=== PATIENT | female | born 1930 | race Caucasian/White ===

== ENCOUNTER → 2017-04-10 | Outpatient (CLI) | payer OTHER ==
[2015-10-25 11:06] VITALS: BP 156/53
--- NOTE | 2017-04-10 16:53 | RAD ---
HISTORY: back pain Study: Lumbar spine series Comparison: None Findings: There is [id number] disc space narrowing throughout with moderate scoliotic curvature, convex t o the right, and centered along the mid lumbar region. There is a moderate wedge compression fracture of T12. No displaced or retropulsed fragment is seen. There are moderate sclerotic changes of the fa cets inferiorly with no pars defect seen. The bones are severely osteopenic.. IMPRESSION: Moderately severe compression fracture of T12, the age of which is indeterminate. Recommend correlati ng with an MRI or bone scan, if indicated clinically. Moderate multilevel degenerative disc disease. 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 Diffuse osteopenia. Reported By:
--- NOTE | 2017-04-11 16:07 | RAD ---
HISTORY: Upper and lower back pain Study: 3 views of the thoracic spine. Comparison: None Findings: Grossly normal alignment of the thoracic spine. Multilevel degenerative disc disease. Compression de formity of T12. IMPRESSION: 1. Compression deformity of T12. Correlate clinically for evidence of chronicity. This does not appe ar to be acute by this x-ray alone. 2. Severe multilevel degenerative disc disease of the thoracic spine. Reported By:
== END | disposition home or self-care (01) ==
LOC: RAD 14:07
PROVIDERS: ATTEND Nurse Practitioner Family
DX: M54.17 Radiculopathy, lumbosacral region (principal); R26.2 Difficulty in walking, not elsewhere classified; M54.6 Pain in thoracic spine; M85.88 Other specified disorders of bone density and structure, other site; M51.34 Other intervertebral disc degeneration, thoracic region
CPT/HCPCS: 72072; 72100

== ENCOUNTER 2017-08-20 15:52 | Inpatient (IN) | payer OTHER ==
[2017-08-20] MEDS ORDERED: NS 1000 ML 1,000 ML ONE ×2 (16:02→16:57)
[2017-08-20] MEDS ORDERED: NS 1000 ML 1,000 ML IV ONE ×2 (16:08→18:46)
[2017-08-20] MEDS ORDERED: CARDIZEM INJ 50 MG VIAL IVP ONE (16:21)
[2017-08-20] MEDS ORDERED: CARDIZEM INJ 50 MG VIAL ONE (16:24)
[2017-08-20 16:39] LABS: BASOPHILS # (AUTO) 0.1 X10^3/uL (0.0-0.1); BASOPHILS % (AUTO) 0.6 % (0.2-1.0); EOSINOPHILS # (AUTO) 0.1 x10^3/uL (0.0-0.2); EOSINOPHILS % (AUTO) 0.9 % (0.9-2.9); HEMOGLOBIN 12.5 g/dL (12.0-16.0); LYMPHOCYTES # (AUTO) 1.3 X10^3/uL (1.3-2.9); LYMPHOCYTES % (AUTO) 15.6 % (21.0-51.0); MEAN CORPUSCULAR HEMOGLOBIN 31.5 pg (27.0-34.0); MEAN CORPUSCULAR HGB CONC 33.9 g/dL (33.0-35.0); MEAN CORPUSCULAR VOLUME 93.1 fL (80.0-100.0); MEAN PLATELET VOLUME 10.2 fL (7.4-11.0); MONOCYTES # (AUTO) 0.3 x10^3/uL (0.3-0.8); MONOCYTES % (AUTO) 3.5 % (0.0-13.0); NEUTROPHILS # (AUTO) 6.7 x10^3/uL (2.2-4.8); NEUTROPHILS % (AUTO) 79.4 % (42.0-75.0); PLATELET COUNT 170 X10^3/uL (150.0-450.0); RED BLOOD COUNT 3.98 X10^6/uL (3.5-5.4); RED CELL DISTRIBUTION WIDTH 13.6 % (11.6-16.5); WHITE BLOOD COUNT 8.4 X10^3/uL (3.6-10.0)
[2017-08-20 16:51] LABS: BLOOD UREA NITROGEN 28 mg/dL (7-18); CALCIUM 8.6 mg/dL (8.5-10.1); CARBON DIOXIDE 24.7 mmol/L (21-32); CHLORIDE 104 mmol/L (98-107); COR NA(FOR HYPERGLY) 139 mmol/L (136-145); SODIUM 139 mmol/L (136-145); TROPONIN I < 0.02 ng/mL (0-1.5); eGFR BLACK RACES 46 (>60); eGFR NON BLACK RACES 38 (>60)
[2017-08-20] MEDS ORDERED: NS 100 ML IV 100 ML IV ONE (16:52)
[2017-08-20] MEDS ORDERED: CARDIZEM INJ 125 MG VIAL ONE (16:52)
[2017-08-20 16:55] LABS: ALANINE AMINOTRANSFERASE 28 Units/L (12-78); ALBUMIN 3.3 g/dL (3.4-5.0); ALKALINE PHOSPHATASE 63 Units/L (46-116); ASPARTATE AMINO TRANSFERASE 33 Units/L (15-37); CKMB % 1.7 % (<4); COR CA(FOR HYPOALB) 9.2 mg/dL (8.5-10.1); CREATINE KINASE 102 Units/L (26-192); CREATINE KINASE MB 1.7 ng/mL (0-4.0); TOTAL PROTEIN 6.7 g/dL (6.4-8.2)
--- NOTE | 2017-08-20 17:37 | DR.DIZZY ---
HPI - Time seen Time seen: 16:10 - PCP Primary Care Physician: cherise perry - HPI Comment HPI Comment: HISTORY ATRIAL FIBRILLATION. - Complaint Chief Complaint Doctor Comments: PATIENT HAVE N/V/D SINCE THIS AM. NOW DIZZY, WEAK WITH RAPID HEART RATE. Chief Complaint:: patient daughter stated that she woke up this morning and nausea and vomiting and having some diarrhea - Nurses Notes Reviewed Nurses Notes Review: Yes - Source History Provided: Patient - Mode of Arrival Mode of Arrival: Ambulatory - Timing Onset of Chief Complaint: 08/20/17 Came on: Suddenly Onset of Symptoms Start Date: 08/20/17 - Duration Duration: Constant Duration: Hours - Location of Weakness Weakness Location: Generalized - Context Onset: At rest Does pt take pot. toxic medication?: No Stroke Symptoms: Dizziness - Severity Severity: Abnormal activity level - Modifying factors Worsens: Nothing - Associated signs and symptoms Associated Signs and Symptoms: Near Syncope, Weak, Chest Pain, Palpitations, Nausea, Vomiting PMH - PMH Past Medical History: Yes Past Medical History: Hypertension, Hypothyroidism Past Surgical History: Yes Surgical History: Hysterectomy - Family History History of Family Medical Conditions: Yes Family Medical History: Cancer - Social History Does patient currently use any type of tobacco product: No Have you used tobacco products in the last 12 months: No Type of Tobacco Use: None Does any household member use tobacco: No Alcohol Use: None Do you use any recreational Drugs:: No Lives With: Family Lives Where: Assisted Care - infectious screening In the last 2 months have you had wt loss of >10#?: NO Have you had fever, night sweats or hemotysis?: No Have you traveled outside the country in the last 6 months?: No Isolation: Standard ROS - Review of Systems Constitutional: Weakness, Fatigue. negative: Chills, Fever Eyes: negative: Eye Pain, Discharge ENTM: negative: Ear Pain, Nose Discharge, Nose Congestion, Throat Pain Respiratoy: Short of Breath. negative: Productive Cough, Non-Productive Cough, Wheezing, Hemoptysis Cardiovascular: Chest Pain, Palpitations. negative: Syncope (NEAR SYNCOPE) Genitourinary: negative: Dysuria, Hematuria Neurological: Weakness, Dizziness. negative: Headache Musculoskeletal: Muscle Pain Integumentary: Dryness Hematologic/Lymphatic: No Symptoms Reported Endocrine: No Symptoms Reported All Other Systems: Reviewed and Negative PE - Vital Signs Vitals: Temperature 98.7 F Pulse Rate 149 Respiratory Rate 16 Blood Pressure [Right Arm] 190/90 Blood Pressure [Left Arm] 156/53 Blood Pressure 95/64 O2 Sat by Pulse Oximetry 100 - General Limitations: No Limitations General Appearance: Alert - Head Head Exam: Normal Inspection - Eyes Eye exam: Normal Appearance Pupils: Regular, Round: Bilateral, Reactive: Bilateral Sclera/Conjunctival: Normal Inspection: Bilateral - ENT ENT Exam: Normal Oropharynx, Normal External Ear Exam, TM's Normal Bilaterally - Neck Neck Exam: Trachea Midline. negative: Tenderness, Meningismus, Lymphadenopathy - Chest Chest Inspection: Symmetric Chest Wall Rise - Respiratory Respiratory Exam: Normal Lung Sounds Bilat Respiratory Exam: Bilateral Rhonchi, Lower Rhonchi - Cardiovascular Cardiovascular Exam: Tachycardia, Irregular Rhythm - Abdominal Exam Abdominal Exam: Normal Bowel Sounds, Soft. negative: Tenderness - Rectal Rectal Exam: Deferred - Extremeties Extremities Exam: Normal Inspection - Back Back Exam: Normal Inspection - Neurologic Neurological Exam: Alert, Oriented X3 Speech: Fluid Speech - Psychiatric Psychiatric Exam: Normal Affect, Normal Mood - Skin Skin Exam: Normal Color MDM - Additional Information Additional Information Obtained From: Family - Differential Diagnosis Differential Diagnosis: Dehydration, Electrolyte disorder (GASTROENTERITIS, A FIB WITH RVR, HYPOTENSION) Course - Treatment Treatment: SEE ORDERS. - Consultation Consultation Comments: DISCUSS PATIENT WITH DR. REYES. HE WILL ADMIT PATIENT. - Education/Counseling Education/Counseling: Patient, Family, Education Educated On: Treatment, Diagnosis ROR - Labs Reviewed Laboratory Results Reviewed?: Yes Result Diagrams: 08/20/17 16:06 08/20/17 16:06 Laboratory: WBC 8.4 X10^3/uL (3.6-10.0) 08/20/17 16:06 RBC 3.98 X10^6/uL (3.5-5.4) 08/20/17 16:06 Hgb 12.5 g/dL (12.0-16.0) 08/20/17 16:06 Hct 37.0 % (36.0-47.0) 08/20/17 16:06 MCV 93.1 fL (80.0-100.0) 08/20/17 16:06 MCH 31.5 pg (27.0-34.0) 08/20/17 16:06 MCHC 33.9 g/dL (33.0-35.0) 08/20/17 16:06 RDW 13.6 % (11.6-16.5) 08/20/17 16:06 Plt Count 170 X10^3/uL (150.0-450.0) 08/20/17 16:06 MPV 10.2 fL (7.4-11.0) 08/20/17 16:06 Neut % 79.4 % (42.0-75.0) H 08/20/17 16:06 Lymph % 15.6 % (21.0-51.0) L 08/20/17 16:06 [place] % 3.5 % (0.0-13.0) 08/20/17 16:06 Eos % 0.9 % (0.9-2.9) 08/20/17 16:06 Baso % 0.6 % (0.2-1.0) 08/20/17 16:06 Neut # 6.7 x10^3/uL (2.2-4.8) H 08/20/17 16:06 Lymph # 1.3 X10^3/uL (1.3-2.9) 08/20/17 16:06 [place] # 0.3 x10^3/uL (0.3-0.8) 08/20/17 16:06 Eos # 0.1 x10^3/uL (0.0-0.2) 08/20/17 16:06 Baso # 0.1 X10^3/uL (0.0-0.1) 08/20/17 16:06 Absolute Nucleated RBC 0.0 /100WBC 08/20/17 16:06 INR Target Range - 08/20/17 16:06 INR 1.05 (0.8-1.3) 08/20/17 16:06 PTT 25.7 SECONDS (22.9-36.5) 08/20/17 16:06 PTT Comment - 08/20/17 16:06 Sodium 139 mmol/L (136-145) 08/20/17 16:06 Corrected Sodium 139 mmol/L (136-145) 08/20/17 16:06 Potassium 4.4 mmol/L (3.5-5.1) 08/20/17 16:06 Chloride 104 mmol/L (98-107) 08/20/17 16:06 Carbon Dioxide 24.7 mmol/L (21-32) 08/20/17 16:06 BUN 28 mg/dL (7-18) H 08/20/17 16:06 Creatinine 1.40 mg/dL (0.55-1.02) H 08/20/17 16:06 Est GFR (MDRD) Af Amer 46 (>60) L 08/20/17 16:06 Est GFR (MDRD) Non-Af 38 (>60) L 08/20/17 16:06 Glucose 112 mg/dL (65-99) H 08/20/17 16:06 Calcium 8.6 mg/dL (8.5-10.1) 08/20/17 16:06 Corrected Calcium 9.2 mg/dL (8.5-10.1) 08/20/17 16:06 Total Bilirubin 0.40 mg/dL (0.2-1.0) 08/20/17 16:06 AST 33 Units/L (15-37) 08/20/17 16:06 ALT 28 Units/L (12-78) 08/20/17 16:06 Alkaline Phosphatase 63 Units/L (46-116) 08/20/17 16:06 Creatine Kinase 102 Units/L (26-192) 08/20/17 16:06 CK-MB (CK-2) 1.7 ng/mL (0-4.0) 08/20/17 16:06 CK/CKMB % Calc 1.7 % (<4) 08/20/17 16:06 Troponin I < 0.02 ng/mL (0-1.5) 08/20/17 16:06 Total Protein 6.7 g/dL (6.4-8.2) 08/20/17 16:06 Albumin 3.3 g/dL (3.4-5.0) L 08/20/17 16:06 Globulin 3.4 g/dL (2.5-4.5) 08/20/17 16:06 Albumin/Globulin Ratio 1.0 Ratio (1.1-2.1) L 08/20/17 16:06 - XRAY XRAY Interpreted by: Radiologist XRAY Findings: REPORT DISCUSS WITH PATIENT AND FAMILY. - EKG Rhythm: Afib (WITH RVR. EKG NOTED.) - Diagnosis Discharge Problem: Atrial fibrillation with RVR, Dehydration, Gastroenteritis - Discharge Plan Disposition: ADMITTED INPATIENT Condition: Stable - Follow ups/Referrals - Instructions
[2017-08-20] MEDS: CARDIZEM INJ 125 MG VIAL 125 MG in NS 100 ML IV 100 ML IV PRN ×3 (17:43→18:38)
--- NOTE | 2017-08-20 18:28 | RAD ---
HISTORY: Nausea and vomiting Study: Single view of the chest. Comparison: None. Findings: The cardiomediastinal silhouette is normal. No focal consolidations, pleural effusions or pneumothora x. Osseous structures demonstrate no acute abnormality. Bilateral hyper expansion with coarsening of interstitial markings IMPRESSION: 1. No acute cardiopulmonary process. 2. Findings consistent with COPD. Reported By:
[2017-08-20] MEDS ORDERED: ZANAFLEX PO PRN (18:38)
[2017-08-20] MEDS ORDERED: XANAX PO PRN (18:38)
[2017-08-20] MEDS: NS 1000 ML 1,000 ML IV SCH ×2 (18:46→19:59)
[2017-08-20 21:54] VITALS: BMI 21.7
[2017-08-20 23:42] LABS: CKMB % 1.8 % (<4); CREATINE KINASE MB 1.8 ng/mL (0-4.0); TROPONIN I 0.17 ng/mL (0-1.5)
[2017-08-21 06:31] LABS: BASOPHILS % (AUTO) 0.5 % (0.2-1.0); EOSINOPHILS # (AUTO) 0.1 x10^3/uL (0.0-0.2); HEMATOCRIT 29.3 % (36.0-47.0); LYMPHOCYTES # (AUTO) 1.8 X10^3/uL (1.3-2.9); LYMPHOCYTES % (AUTO) 33.7 % (21.0-51.0); MEAN CORPUSCULAR HGB CONC 34.3 g/dL (33.0-35.0); MEAN CORPUSCULAR VOLUME 93.5 fL (80.0-100.0); MEAN PLATELET VOLUME 10.4 fL (7.4-11.0); MONOCYTES # (AUTO) 0.3 x10^3/uL (0.3-0.8); MONOCYTES % (AUTO) 6.3 % (0.0-13.0); NEUTROPHILS # (AUTO) 3.2 x10^3/uL (2.2-4.8); NEUTROPHILS % (AUTO) 58.5 % (42.0-75.0); PLATELET COUNT 117 X10^3/uL (150.0-450.0); RED BLOOD COUNT 3.13 X10^6/uL (3.5-5.4); RED CELL DISTRIBUTION WIDTH 13.9 % (11.6-16.5); WHITE BLOOD COUNT 5.4 X10^3/uL (3.6-10.0)
[2017-08-21 06:34] LABS: ALANINE AMINOTRANSFERASE 23 Units/L (12-78); ALBUMIN 2.4 g/dL (3.4-5.0); ALKALINE PHOSPHATASE 44 Units/L (46-116); ASPARTATE AMINO TRANSFERASE 24 Units/L (15-37); BLOOD UREA NITROGEN 18 mg/dL (7-18); CALCIUM 7.4 mg/dL (8.5-10.1); CHLORIDE 109 mmol/L (98-107); CHOL/HDL RATIO 2.4 (0.0-5.0); CHOLESTEROL 134 mg/dL (0-200); COR CA(FOR HYPOALB) 8.7 mg/dL (8.5-10.1); HDL CHOLESTEROL 56 mg/dL (40-60); SODIUM 139 mmol/L (136-145); TOTAL PROTEIN 5.2 g/dL (6.4-8.2); TRIGLYCERIDES 34 mg/dL (0-150); eGFR BLACK RACES > 60 (>60); eGFR NON BLACK RACES 50 (>60)
[2017-08-21] MEDS: NS 1000 ML 1,000 ML IV SCH ×2 (06:41→08:53)
[2017-08-21] MEDS ORDERED: POTASSIUM CHL 40 MEQ/NS 0.45% 500 ML IV PRN (07:21)
[2017-08-21] MEDS ORDERED: MAGNESIUM SULFATE 1 GM/100 mL PREMIX 1 GM/100 ML BAG IV PRN (07:21)
[2017-08-21] MEDS ORDERED: K-RIDER 10 MEQ/NS 100 ML 10 MEQ/100 ML BAG IV PRN (07:21)
[2017-08-21] MEDS ORDERED: MAG-OX TAB PO PRN (07:21)
[2017-08-21] MEDS ORDERED: K-LYTE EFFERVESCENT PO PRN (07:21)
[2017-08-21] MEDS ORDERED: POTASSIUM CHLORIDE LIQ 20 MEQ UDC PO PRN (07:21)
[2017-08-21] MEDS ORDERED: POTASSIUM CHL 60 MEQ/NS 0.45% 500 ML IV PRN (07:21)
[2017-08-21 07:24] LABS: CKMB % 1.7 % (<4); CREATINE KINASE MB 1.6 ng/mL (0-4.0); TROPONIN I 0.21 ng/mL (0-1.5)
[2017-08-21] MEDS: XARELTO PO SCH ×2 (08:51→08:53)
[2017-08-21] MEDS ORDERED: SYNTHROID 50 mcg TAB PO SCH (09:00)
[2017-08-21] MEDS ORDERED: TAMBOCOR PO SCH (10:00)
[2017-08-21 10:06] VITALS: BP 142/67
[2017-08-21] MEDS ORDERED: TOPROL XL PO SCH (21:00)
[2017-08-21] MEDS ORDERED: XARELTO PO SCH (21:00)
== END 2017-08-21 11:05 | disposition home or self-care (01) | DRG 641 ==
LOC: ER 15:52 → ICU 18:27
PROVIDERS: ADMIT Obstetrics & Gynecology Obstetrics; ATTEND Obstetrics & Gynecology Obstetrics
DX: E86.0 Dehydration (principal); I48.91 Unspecified atrial fibrillation; K52.89 Other specified noninfective gastroenteritis and colitis; I10 Essential (primary) hypertension; E03.8 Other specified hypothyroidism; R06.02 Shortness of breath; R94.31 Abnormal electrocardiogram [ECG] [EKG]; R94.4 Abnormal results of kidney function studies
CPT/HCPCS: 36415; 71045; 80053; 80061; 80162; 82550; 82553; 83735; 84484; 85025; 85610; 85730; 93005; 93010; 96365; 96367; 96374; 96375; 99284; 99285; A4222; J3490

== ENCOUNTER 2017-09-15 09:27 | Inpatient (IN) | payer OTHER ==
[2017-09-15] MEDS ORDERED: DUONEB 0.5 MG/3 MG ONE (09:36)
[2017-09-15 09:54] VITALS: BMI 22.6
[2017-09-15] MEDS ORDERED: DUONEB 0.5 MG/3 MG NEB ONE ×4 (09:58→16:30)
[2017-09-15] MEDS ORDERED: SOLU-Medrol 125 MG VIAL IVP ONE (09:58)
[2017-09-15] MEDS ORDERED: LOPRESSOR INJ 5 MG AMP IVP ONE (09:59)
[2017-09-15] MEDS ORDERED: SOLU-Medrol 125 MG VIAL ONE (10:02)
[2017-09-15] MEDS ORDERED: NS 1/2 1000 ML IV 1,000 ML IV ONE (10:02)
[2017-09-15] MEDS ORDERED: LOPRESSOR INJ 5 MG AMP ONE (10:02)
--- NOTE | 2017-09-15 10:02 | DR.SOBA ---
HPI - Time Seen Time seen: 09:40 - Primary Care Physician Primary Care Physician: BATSHEVA - Complaints Chief Complaint:: EMS STATES PT C/O SOB. PT STATES SHE HAS BEEN HAVING C/C/C FOR THE PAST WEEK, BUT SHE JUST GOT WORSE THIS AM. EMS STATES PT'S SPO2 WAS NOTED TO BE 74% UPON ARRIVAL. X1 JONELO MANDI WAS ADMINISTERED - Reviewed Nurses Notes Reviewed: Yes - Source History Provided: Patient - Mode of Arrival Mode of Arrival: EMS - Timing Onset of Chief Complaint: 09/15/17 - Context Onset:: At Rest - Modifying Factors Worsens:: Lying Flat Improves:: Nothing PMH - PMH Past Medical History: Yes Past Medical History: Hypertension, Hypothyroidism Past Medical History Comment: AFIB Past Surgical History: Yes Surgical History: Hysterectomy - Family History History of Family Medical Conditions: Yes Family Medical History: Cancer - Social History Does patient currently use any type of tobacco product: No Have you used tobacco products in the last 12 months: No Type of Tobacco Use: None Does any household member use tobacco: No Alcohol Use: None Do you use any recreational Drugs:: No Lives With: Family Lives Where: Home - infectious screening In the last 2 months have you had wt loss of >10#?: NO Have you had fever, night sweats or hemotysis?: No Have you traveled outside the country in the last 6 months?: No Isolation: Standard ROS - Review of Systems Constitutional: No Symptoms Reported Eyes: No Symptoms Reported ENTM: No Symptoms Reported Respiratoy: Productive Cough, Short of Breath Cardiovascular: No Symptoms Reported Gastrointestinal/Abdominal: No Symptoms Reported Genitourinary: No Symptoms Reported Neurological: No Symptoms Reported Musculoskeletal: No Symptoms Reported Integumentary: No Symptoms Reported Hematologic/Lymphatic: No Symptoms Reported Endocrine: No Symptoms Reported Psychiatric: No Symptoms Reported All Other Systems: Reviewed and Negative PE - Vital Signs Vitals: Temperature 99.1 F Pulse Rate 75 Respiratory Rate 24 Blood Pressure [Right Arm] 190/90 Blood Pressure [Left Arm] 142/67 Blood Pressure 200/96 O2 Sat by Pulse Oximetry 98 - General Limitations: No Limitations General Appearance: Alert, In No Apparent Distress - Head Head Exam: Normal Inspection - Eyes Eye exam: Normal Appearance - ENT ENT Exam: Normal Exam - Neck Neck Exam: Normal Inspection, Full ROM, Trachea Midline - Chest Chest Inspection: Normal Inspection, Symmetric Chest Wall Rise - Respiratory Respiratory Exam: Bilateral Rales, Bilateral Rhonchi - Cardiovascular Cardiovascular Exam: Irregular Rhythm, +S1, +S2 - Abdominal Exam Abdominal Exam: Normal Inspection, Normal Bowel Sounds, Soft - Extremities Extremities Exam: Normal Inspection, Edema (1+ in legs) - Back Back Exam: Normal Inspection - Neurologic Neurological Exam: Alert, Oriented X3 - Psychiatric Psychiatric Exam: Normal Affect, Normal Mood - Skin Skin Exam: Warm, Dry, Intact, Normal Color Course - Reevaluation 1st: Improved - Consultation Consultation Comments: I alled and spoke with on-call provider- Dr. Barajas, who agrees with recommendation to hospialise for diuresis. - Education/Counseling Education/Counseling: Patient, Family, Counseling Educated On: Treatment, Diagnosis, Prognosis, Needs for Follow Up ROR - Labs Reviewed Result Diagrams: 09/15/17 10:05 09/15/17 10:05 Laboratory: 09/15/17 10:15 Sputum - Expectorated Sputum - Final WBC 11.8 X10^3/uL (3.6-10.0) H 09/15/17 10:05 RBC 4.04 X10^6/uL (3.5-5.4) 09/15/17 10:05 Hgb 12.5 g/dL (12.0-16.0) 09/15/17 10:05 Hct 37.6 % (36.0-47.0) 09/15/17 10:05 MCV 93.1 fL (80.0-100.0) 09/15/17 10:05 MCH 31.0 pg (27.0-34.0) 09/15/17 10:05 MCHC 33.3 g/dL (33.0-35.0) 09/15/17 10:05 RDW 13.6 % (11.6-16.5) 09/15/17 10:05 Plt Count 182 X10^3/uL (150.0-450.0) 09/15/17 10:05 MPV 10.7 fL (7.4-11.0) 09/15/17 10:05 Neut % (Auto) 70.2 % (42.0-75.0) 09/15/17 10:05 Lymph % (Auto) 22.2 % (21.0-51.0) 09/15/17 10:05 [place] % (Auto) 5.8 % (0.0-13.0) 09/15/17 10:05 Eos % (Auto) 0.7 % (0.9-2.9) L 09/15/17 10:05 Baso % (Auto) 1.1 % (0.2-1.0) H 09/15/17 10:05 Neut # (Auto) 8.3 x10^3/uL (2.2-4.8) H 09/15/17 10:05 Lymph # (Auto) 2.6 X10^3/uL (1.3-2.9) 09/15/17 10:05 [place] # (Auto) 0.7 x10^3/uL (0.3-0.8) 09/15/17 10:05 Eos # (Auto) 0.1 x10^3/uL (0.0-0.2) 09/15/17 10:05 Baso # (Auto) 0.1 X10^3/uL (0.0-0.1) 09/15/17 10:05 Absolute Nucleated RBC 0.0 /100WBC 09/15/17 10:05 Sodium 137 mmol/L (136-145) 09/15/17 10:05 Corrected Sodium 139 mmol/L (136-145) 09/15/17 10:05 Potassium 4.6 mmol/L (3.5-5.1) 09/15/17 10:05 Chloride 102 mmol/L (98-107) 09/15/17 10:05 Carbon Dioxide 24.8 mmol/L (21-32) 09/15/17 10:05 BUN 29 mg/dL (7-18) H 09/15/17 10:05 Creatinine 1.64 mg/dL (0.55-1.02) H 09/15/17 10:05 Est GFR (MDRD) Af Amer 38 (>60) L 09/15/17 10:05 Est GFR (MDRD) Non-Af 31 (>60) L 09/15/17 10:05 Glucose 167 mg/dL (65-99) H 09/15/17 10:05 Calcium 8.4 mg/dL (8.5-10.1) L 09/15/17 10:05 Corrected Calcium TNP 09/15/17 10:05 Total Bilirubin 0.70 mg/dL (0.2-1.0) 09/15/17 10:05 AST 160 Units/L (15-37) H 09/15/17 10:05 ALT 147 Units/L (12-78) H 09/15/17 10:05 Alkaline Phosphatase 137 Units/L (46-116) H 09/15/17 10:05 Creatine Kinase 58 Units/L (26-192) 09/15/17 10:05 CK-MB (CK-2) 1.2 ng/mL (0-4.0) 09/15/17 10:05 CK/CKMB % Calc 2.1 % (<4) 09/15/17 10:05 Troponin I < 0.02 ng/mL (0-1.5) 09/15/17 10:05 Total Protein 7.2 g/dL (6.4-8.2) 09/15/17 10:05 Albumin 3.4 g/dL (3.4-5.0) 09/15/17 10:05 Globulin 3.8 g/dL (2.5-4.5) 09/15/17 10:05 Albumin/Globulin Ratio 0.9 Ratio (1.1-2.1) L 09/15/17 10:05 Specimen Type Catherized urine 09/15/17 11:10 Urine Color Yellow (YELLOW) 09/15/17 11:10 Urine Appearance Hazy (CLEAR) 09/15/17 11:10 Urine pH 5.0 (5.0 - 8.0) 09/15/17 11:10 Ur Specific [place] 1.025 (1.000-1.030) 09/15/17 11:10 Urine Protein 2+ (NEGATIVE) 09/15/17 11:10 Urine Glucose (UA) Negative (NEGATIVE) 09/15/17 11:10 Urine Ketones Negative (NEGATIVE) 09/15/17 11:10 Urine Occult Blood 4+ (NEGATIVE) 09/15/17 11:10 Urine Nitrite Negative (NEGATIVE) 09/15/17 11:10 Urine Bilirubin Negative (NEGATIVE) 09/15/17 11:10 Urine Urobilinogen Normal (NORMAL) 09/15/17 11:10 Ur Leukocyte Esterase 1+ (NEGATIVE) 09/15/17 11:10 Urine RBC 10-20 /HPF (NONE SEEN) 09/15/17 11:10 Urine WBC 0-2 /HPF (NONE SEEN) 09/15/17 11:10 Ur Squamous Epith Cells Rare /HPF (NEGATIVE) 09/15/17 11:10 Calcium Oxalate Crystal Rare /HPF (NEGATIVE) 09/15/17 11:10 Urine Bacteria Trace /HPF (NEGATIVE) 09/15/17 11:10 Hyaline Casts Few /LPF (NEGATIVE) 09/15/17 11:10 Coarse Granular Casts Rare /HPF (NEGATIVE) 09/15/17 11:10 Ur Culture Indicated? No/not indicated 09/15/17 11:10 - Diagnosis Discharge Problem: Heart failure with acute decompensation, type unknown - Discharge Plan Disposition: ADMITTED INPATIENT Condition: Stable - Follow ups/Referrals Follow ups/Referrals: Aravind Hernandez [Primary Care Provider] - 3 days - Instructions Instructions: Heart Failure
[2017-09-15 10:17] LABS: BASOPHILS # (AUTO) 0.1 X10^3/uL (0.0-0.1); BASOPHILS % (AUTO) 1.1 % (0.2-1.0); EOSINOPHILS # (AUTO) 0.1 x10^3/uL (0.0-0.2); EOSINOPHILS % (AUTO) 0.7 % (0.9-2.9); HEMATOCRIT 37.6 % (36.0-47.0); HEMOGLOBIN 12.5 g/dL (12.0-16.0); LYMPHOCYTES # (AUTO) 2.6 X10^3/uL (1.3-2.9); LYMPHOCYTES % (AUTO) 22.2 % (21.0-51.0); MEAN CORPUSCULAR HGB CONC 33.3 g/dL (33.0-35.0); MEAN CORPUSCULAR VOLUME 93.1 fL (80.0-100.0); MEAN PLATELET VOLUME 10.7 fL (7.4-11.0); MONOCYTES # (AUTO) 0.7 x10^3/uL (0.3-0.8); MONOCYTES % (AUTO) 5.8 % (0.0-13.0); NEUTROPHILS # (AUTO) 8.3 x10^3/uL (2.2-4.8); NEUTROPHILS % (AUTO) 70.2 % (42.0-75.0); PLATELET COUNT 182 X10^3/uL (150.0-450.0); RED BLOOD COUNT 4.04 X10^6/uL (3.5-5.4); RED CELL DISTRIBUTION WIDTH 13.6 % (11.6-16.5); WHITE BLOOD COUNT 11.8 X10^3/uL (3.6-10.0)
--- NOTE | 2017-09-15 10:28 | RAD ---
Examination: Chest, portable AP and lateral views History: SOB Comparison reference 08/20/2017 Findings: Continued upper normal heart size. Interval appearance of diffuse bilateral pulmonary infil trates, right greater than left. Small posterior pleural effusions suggested. No pneumothorax seen. Impression: Findings most consistent with interval development of CHF and pulmonary edema. Associated pneumonia may be present; correlate clinically. New Reported By:
[2017-09-15 10:32] LABS: BLOOD UREA NITROGEN 29 mg/dL (7-18); CALCIUM 8.4 mg/dL (8.5-10.1); CARBON DIOXIDE 24.8 mmol/L (21-32); CHLORIDE 102 mmol/L (98-107); COR NA(FOR HYPERGLY) 139 mmol/L (136-145); CREATININE 1.64 mg/dL (0.55-1.02); SODIUM 137 mmol/L (136-145); TROPONIN I < 0.02 ng/mL (0-1.5); eGFR BLACK RACES 38 (>60); eGFR NON BLACK RACES 31 (>60)
[2017-09-15] MEDS ORDERED: NS 1/2 1000 ML IV 1,000 ML IV PRN (10:34)
[2017-09-15 10:36] LABS: ALANINE AMINOTRANSFERASE 147 Units/L (12-78); ALBUMIN 3.4 g/dL (3.4-5.0); ALKALINE PHOSPHATASE 137 Units/L (46-116); ASPARTATE AMINO TRANSFERASE 160 Units/L (15-37); CKMB % 2.1 % (<4); CREATINE KINASE 58 Units/L (26-192); CREATINE KINASE MB 1.2 ng/mL (0-4.0); TOTAL PROTEIN 7.2 g/dL (6.4-8.2)
[2017-09-15] MEDS ORDERED: LEVAQUIN PREMIX IV 500 MG 500 MG/100 ML BAG IV ONE ×2 (10:42→11:20)
[2017-09-15] MEDS ORDERED: LASIX IVP ONE ×3 (10:55→14:30)
[2017-09-15 11:19] LABS: BILIRUBIN,URINE NEGATIVE (NEGATIVE); BLOOD/HEMOGLOBIN,URINE 4+ (NEGATIVE); GLUCOSE, URINE NEGATIVE (NEGATIVE); KETONES,URINE NEGATIVE (NEGATIVE); LEUKOCYTE ESTERASE ,URINE 1+ (NEGATIVE); NITRITES,URINE NEGATIVE (NEGATIVE); PROTEIN,URINE 2+ (NEGATIVE); UROBILINOGEN,URINE NORMAL (NORMAL)
[2017-09-15] MEDS ORDERED: LEVAQUIN PREMIX IV 750 MG 750 MG/150 ML BAG IV ONE (11:19)
[2017-09-15 11:30] LABS: APPEARANCE,URINE HAZY (CLEAR); COLOR,URINE YELLOW (YELLOW)
[2017-09-15 11:31] LABS: BACTERIA,URINE TRACE /HPF (NEGATIVE); CALCIUM OXALATE CRYSTALS,UR RARE /HPF (NEGATIVE); SQUAMOUS EPITHELIAL CELL,UR RARE /HPF (NEGATIVE)
[2017-09-15 11:32] LABS: COARSE GRANULAR CASTS,URINE RARE /HPF (NEGATIVE); HYALINE CASTS, URINE FEW /LPF (NEGATIVE)
[2017-09-15 11:41] LABS: ABG BASE EXCESS -4.3 mmol/L (-2.0-2.0); ABG HCO3 22.1 mmol/L (22-26)
[2017-09-15] MEDS ORDERED: LOPRESSOR INJ 5 MG AMP IVP PRN ×2 (11:56→19:00)
[2017-09-15] MEDS ORDERED: XANAX ONE (12:22)
[2017-09-15] MEDS ORDERED: XANAX PO ONE (12:36)
[2017-09-15] MEDS ORDERED: VERSED ONE (13:06)
[2017-09-15] MEDS ORDERED: VERSED IVP ONE (13:23)
[2017-09-15] MEDS ORDERED: NITROGLYCERIN IV PREMIX 50 MG 50 MG/250 ML BAG IV ONE (13:40)
[2017-09-15] MEDS ORDERED: NITROGLYCERIN IV PREMIX 50 MG 50 MG/250 ML BAG IV PRN ×2 (13:47→19:00)
[2017-09-15] MEDS ORDERED: MORPHINE SULFATE INJ 2 MG INJ ONE (14:03)
[2017-09-15] MEDS ORDERED: MORPHINE SULFATE INJ 2 MG INJ IVP PRN ×2 (14:26→19:00)
[2017-09-15] MEDS: VERSED IVP PRN ×3 (15:21→19:17)
[2017-09-15] MEDS ORDERED: XOPENEX 1.25 MG/3 ML NEBULE NEB ONE ×2 (16:41→19:33)
[2017-09-15] MEDS ORDERED: XOPENEX 1.25 MG/3 ML NEBULE NEB SCH ×3 (17:00→21:00)
[2017-09-15] MEDS: XOPENEX 1.25 MG/3 ML NEBULE NEB SCH (20:59)
[2017-09-15] MEDS ORDERED: NORVASC TAB 10 MG PO SCH (21:00)
[2017-09-15] MEDS ORDERED: LASIX IVP SCH (21:00)
[2017-09-15] MEDS ORDERED: COLACE CAP 100 MG PO SCH (21:00)
[2017-09-15] MEDS ORDERED: XARELTO PO SCH (21:00)
[2017-09-15] MEDS: XARELTO PO SCH (21:22)
[2017-09-15] MEDS: LASIX IVP SCH (21:22)
[2017-09-15] MEDS: NORVASC TAB 10 MG PO SCH (21:23)
[2017-09-15] MEDS: COLACE CAP 100 MG PO SCH (23:24)
[2017-09-16] MEDS: VERSED IVP PRN ×5 (00:06→11:50)
[2017-09-16 06:40] LABS: ALBUMIN 3.2 g/dL (3.4-5.0); CALCIUM 8.8 mg/dL (8.5-10.1); CARBON DIOXIDE 27.6 mmol/L (21-32); COR CA(FOR HYPOALB) 9.4 mg/dL (8.5-10.1); CREATININE 1.99 mg/dL (0.55-1.02); TOTAL PROTEIN 6.9 g/dL (6.4-8.2)
--- NOTE | 2017-09-16 07:01 | RAD ---
Examination: AP chest History: CHF Comparison 09/15/2017 Findings: Stable upper normal heart size. Interval improvement in aeration of the lungs with decreasi ng perivascular edema and pulmonary vascular distention. There is persistent retrocardiac opacity con sistent with residual airspace disease and pleural fluid. No complicating pneumothorax is seen. Impression: Significant improvement since 1 day earlier. Residual findings as noted especially at the left base. Continued follow-up indicated. Reported By:
[2017-09-16 07:02] LABS: BASOPHILS % (AUTO) 0.1 % (0.2-1.0); HEMATOCRIT 36.2 % (36.0-47.0); HEMOGLOBIN 12.3 g/dL (12.0-16.0); LYMPHOCYTES # (AUTO) 1.4 X10^3/uL (1.3-2.9); LYMPHOCYTES % (AUTO) 10.9 % (21.0-51.0); MEAN CORPUSCULAR HEMOGLOBIN 31.1 pg (27.0-34.0); MEAN CORPUSCULAR HGB CONC 34.1 g/dL (33.0-35.0); MEAN CORPUSCULAR VOLUME 91.4 fL (80.0-100.0); MEAN PLATELET VOLUME 10.8 fL (7.4-11.0); MONOCYTES # (AUTO) 0.7 x10^3/uL (0.3-0.8); MONOCYTES % (AUTO) 5.8 % (0.0-13.0); NEUTROPHILS # (AUTO) 10.6 x10^3/uL (2.2-4.8); NEUTROPHILS % (AUTO) 83.2 % (42.0-75.0); PLATELET COUNT 173 X10^3/uL (150.0-450.0); RED BLOOD COUNT 3.96 X10^6/uL (3.5-5.4); RED CELL DISTRIBUTION WIDTH 13.2 % (11.6-16.5); WHITE BLOOD COUNT 12.8 X10^3/uL (3.6-10.0)
[2017-09-16] MEDS: COLACE CAP 100 MG PO SCH ×2 (08:31→21:14)
[2017-09-16] MEDS: SYNTHROID 50 mcg TAB PO SCH (08:31)
[2017-09-16] MEDS: MOBIC TAB 15 MG PO SCH (08:32)
[2017-09-16] MEDS: LASIX IVP SCH (08:32)
[2017-09-16] MEDS: NORVASC TAB 10 MG PO SCH (08:32)
[2017-09-16] MEDS ORDERED: SYNTHROID 50 mcg TAB PO SCH (09:00)
[2017-09-16] MEDS ORDERED: MOBIC TAB 15 MG PO SCH (09:00)
[2017-09-16] MEDS ORDERED: FLECAINIDE ACETATE 150 MG PO SCH ×2 (09:00)
[2017-09-16] MEDS: XOPENEX 1.25 MG/3 ML NEBULE NEB SCH ×4 (09:07→21:45)
[2017-09-16] MEDS: TAMBOCOR PO SCH (09:12)
[2017-09-16] MEDS ORDERED: LANOXIN INJ ONE ×2 (10:32→10:34)
[2017-09-16] MEDS ORDERED: CARDIZEM INJ 125 MG VIAL ONE (10:33)
[2017-09-16] MEDS ORDERED: NS 100 ML IV 100 ML IV ONE ×2 (10:34→20:37)
[2017-09-16] MEDS: CARDIZEM INJ 125 MG VIAL 125 MG in NS 100 ML IV 100 ML IV PRN ×2 (10:54→20:54)
[2017-09-16] MEDS ORDERED: CATAPRES-TTS-2 TD SCH (12:00)
--- NOTE | 2017-09-16 14:11 | CT ---
HISTORY: Altered mental status Study: CT brain without contrast Comparison: None Technique: Multiple axial images of the brain were obtained from the skull base to the vertex without administra tion of IV contrast. Findings: No acute intraparenchymal hemorrhage or mass can be identified. No extra-axial fluid collections are seen. No alteration in the attenuation of the brain parenchyma can be identified to suggest acute o r subacute ischemic change. The ventricles, sulci, and cisterns demonstrate an appearance consistent with a [id number] degree of generalized atrophy. Patchy and confluent areas of decreased atten uation within the periventricular, subcortical, and subinsular white matter suggest changes of chroni c small vessel ischemic disease. Remote infarcts involving the demond are noted. Bilateral basal gangli a calcifications are demonstrated. If symptoms or clinical concern persist recommend continued follow -up for further evaluation. IMPRESSION: No acute intracranial process can be identified. Mild to moderate generalized atrophy with findings consistent with changes of chronic small vessel is chemic disease. Reported By:
[2017-09-16] MEDS: XANAX PO SCH ×2 (16:03→21:14)
[2017-09-16] MEDS: XARELTO PO SCH (21:14)
[2017-09-17] MEDS ORDERED: NS 1/2 1000 ML IV 1,000 ML IV ONE (05:25)
[2017-09-17] MEDS: XANAX PO SCH ×3 (05:28→21:34)
[2017-09-17] MEDS: NS 1/2 1000 ML IV 1,000 ML IV PRN (05:29)
[2017-09-17] MEDS ORDERED: CARDIZEM INJ 50 MG VIAL ONE (05:49)
[2017-09-17] MEDS ORDERED: NS 100 ML IV 100 ML IV ONE (05:50)
[2017-09-17 05:57] LABS: ALANINE AMINOTRANSFERASE 78 Units/L (12-78); ALBUMIN 3.1 g/dL (3.4-5.0); ALKALINE PHOSPHATASE 97 Units/L (46-116); ASPARTATE AMINO TRANSFERASE 52 Units/L (15-37); BLOOD UREA NITROGEN 35 mg/dL (7-18); CALCIUM 8.9 mg/dL (8.5-10.1); CARBON DIOXIDE 30.3 mmol/L (21-32); CHLORIDE 101 mmol/L (98-107); COR CA(FOR HYPOALB) 9.6 mg/dL (8.5-10.1); CREATININE 1.87 mg/dL (0.55-1.02); SODIUM 141 mmol/L (136-145); TOTAL PROTEIN 6.9 g/dL (6.4-8.2); eGFR BLACK RACES 33 (>60); eGFR NON BLACK RACES 27 (>60)
[2017-09-17 06:04] LABS: BASOPHILS # (AUTO) 0.1 X10^3/uL (0.0-0.1); BASOPHILS % (AUTO) 0.9 % (0.2-1.0); EOSINOPHILS % (AUTO) 0.2 % (0.9-2.9); HEMATOCRIT 37.8 % (36.0-47.0); LYMPHOCYTES # (AUTO) 1.7 X10^3/uL (1.3-2.9); LYMPHOCYTES % (AUTO) 17.1 % (21.0-51.0); MEAN CORPUSCULAR HEMOGLOBIN 31.2 pg (27.0-34.0); MEAN CORPUSCULAR HGB CONC 34.4 g/dL (33.0-35.0); MEAN CORPUSCULAR VOLUME 90.8 fL (80.0-100.0); MEAN PLATELET VOLUME 10.4 fL (7.4-11.0); MONOCYTES # (AUTO) 0.7 x10^3/uL (0.3-0.8); NEUTROPHILS # (AUTO) 7.4 x10^3/uL (2.2-4.8); NEUTROPHILS % (AUTO) 74.8 % (42.0-75.0); PLATELET COUNT 178 X10^3/uL (150.0-450.0); RED BLOOD COUNT 4.16 X10^6/uL (3.5-5.4); RED CELL DISTRIBUTION WIDTH 13.6 % (11.6-16.5); WHITE BLOOD COUNT 9.9 X10^3/uL (3.6-10.0)
--- NOTE | 2017-09-17 07:12 | RAD ---
HISTORY: Shortness of breath Study: Single-view chest Comparison: 09/17/2019 Findings: Cardiac monitoring electrodes are noted on the chest. The trachea is midline. Heart size is upper nor mal with aortic uncoiling. There is mild pulmonary vascular congestion . Left retrocardiac opacity is again seen. This may represent atelectasis, edema and/or fluid. Osseous structures displayed no acut e abnormality. No acute osseous changes are seen. IMPRESSION: Cardiomegaly with mild pulmonary vascular congestion. Left retrocardiac opacity is again seen. Reported By:
[2017-09-17] MEDS: CARDIZEM INJ 125 MG VIAL 125 MG in NS 100 ML IV 100 ML IV PRN (08:00)
[2017-09-17] MEDS: XOPENEX 1.25 MG/3 ML NEBULE NEB SCH ×4 (08:38→22:27)
[2017-09-17] MEDS: TAMBOCOR PO SCH (09:33)
[2017-09-17] MEDS: COLACE CAP 100 MG PO SCH ×2 (09:33→21:33)
[2017-09-17] MEDS: SYNTHROID 50 mcg TAB PO SCH (09:33)
[2017-09-17] MEDS: MOBIC TAB 15 MG PO SCH (09:34)
[2017-09-17] MEDS: NORVASC TAB 10 MG PO SCH (10:04)
--- NOTE | 2017-09-17 10:21 | DR.H&P ---
H&P - History & Physical for Day of: H&P Date: 09/15/17 - Chief Complaint Chief Complaint: short of breath, Cough, cold, congestion - Allergies Allergies/Adverse Reactions: Allergies Allergy/AdvReac Type Severity Reaction Status Date / Time codeine Allergy Verified 08/20/17 16:21 lorazepam [From Ativan] Allergy Verified 08/20/17 16:21 Penicillins Allergy Verified 08/20/17 16:21 albuterol AdvReac Verified 09/16/17 08:47 - History of Present Illness History of Present Illness: is a 87 year old patient of ours who presented to the ER via EMS with complaints of shortness of breath with cough, cold and congestion for a week. Patient reports that symptoms have worsened today. EMS reports that on arrival to patient, oxygen saturations were noted to be 74% on room air. She was given a duoneb x 1. On examination, lungs noted to have bilateral rales and rhonchi with productive cough. On arrival to the ER, oxygen saturations were noted to be 85% on nasal cannula. On arrival, vitals were 99.1-127-24-85%nc, 200/96. Labs were obtained. Abnormal lab values include the following: WBC 11.8, BUN 29, Creatine 1.64, GFR NON AF 31, AF AMer 38, Glucose 167, Calcium 8.4, AST 160, Alt 147, Akaline Phos 137, TSH 3rd generation 2.302. Blood cultures and sputum cultures are pending. A chest xray was obtained and revealed findings most consistent with interval development of CHF and pulmonary edema. Associated pneumonia may be present. EKG revealed: Rate 76, Sinus Rhythm, Left bundle branch block. She was given Lopressor 5mg IVP x 1, Lasix 40mg IV x 1, and solu-medrol 125mg IV x 1 with only mild improvement in symptoms. Blood pressure remained elevated. She was started on a Nitroglycerin drip and placed on the BIPAP. Patient was admitted for further evaluation and treatment with aggressive IV antibiotics, Lasix, Solu-medrol, and respiratory treatments. We plan to follow up with am labs and chest xray and continue to monitor patient. - Past Medical History Past Medical History: Hypertension, Hypothyroidism Additional Medical History: Cataracts, Atrial Fibrillation, Constipation, Frequent UTI's - Past Surgical History Surgical History: Hysterectomy - Family History Family Medical History: Cancer - Social History Does patient currently use any type of tobacco product: No Have you used tobacco products in the last 12 months: No Type of Tobacco Use: None Does any household member use tobacco: No Alcohol Use: None Drug Use: None - Review of Systems Constitutional: Weakness Eyes: No Symptoms Reported ENT: Nose Congestion Respiratory: Cough, Shortness of Breath, SOB with Excertion, Sputum Cardiovascular: Edema (bilateral lower extremities ) Gastrointestinal: No Symptoms Reported Genitourinary: No Symptoms Reported Musculoskeletal: No Symptoms Reported Skin: No Symptoms Reported Neurological: Weakness - Physical Exam Vital Signs: Temperature 97.4 F Pulse Rate [Right Radial] 109 Pulse Rate 118 Respiratory Rate 20 Blood Pressure [Right Arm] 190/90 Blood Pressure [Left Arm] 108/62 Blood Pressure 200/96 O2 Sat by Pulse Oximetry 98 Oriented: Person Eyes: Normal Ear: Normal Nose: Other (nasal congestion ) Throat: Normal Respiratory: Rhonchi Throughout, Rales Throughout Cardiovascular: Tachycardia : Normal Auscultation: Bowel Sounds: Normal Palpation: Normal Tenderness: Normal Skin: Normal Musculoskeletal: Normal Psychiatric: Normal Mood Description: Calm Affect: Normal Speech Pattern: Clear - Assessment/Plan (1) Congestive heart failure (CHF) Qualifiers: Heart failure type: unspecified Heart failure chronicity: acute on chronic Qualified Code(s): I50.9 - Heart failure, unspecified Status: Acute Plan: lasix 40mg iv bid, supplemental oxygen, respiratory treatments, continue to monitor (2) Hypertension Qualifiers: Hypertension type: essential hypertension Qualified Code(s): I10 - Essential (primary) hypertension Status: Chronic Plan: nitroglycerine drip, continue norvasc, continue flecanide, lopressor 5mg ivp q4h prn, continue to monitor
[2017-09-17] MEDS ORDERED: LANOXIN INJ IVP ONE (10:27)
[2017-09-17] MEDS: CIPRO IV 200 MG PREMIX* 200 MG/100 ML BAG IV SCH ×2 (10:46→21:33)
[2017-09-17] MEDS: CARDIZEM CD 180 MG PO SCH (10:46)
[2017-09-17] MEDS: CRESTOR TAB 10 MG PO SCH ×2 (10:46→21:33)
[2017-09-17] MEDS: LASIX IVP SCH ×2 (10:46→21:33)
[2017-09-17] MEDS ORDERED: MILK OF MAGNESIA PO PRN (13:57)
[2017-09-17] MEDS: XARELTO PO SCH (21:34)
[2017-09-18] MEDS: XANAX PO SCH ×3 (06:12→21:06)
[2017-09-18 06:39] LABS: BASOPHILS # (AUTO) 0.1 X10^3/uL (0.0-0.1); BASOPHILS % (AUTO) 0.6 % (0.2-1.0); EOSINOPHILS # (AUTO) 0.1 x10^3/uL (0.0-0.2); EOSINOPHILS % (AUTO) 1.4 % (0.9-2.9); HEMATOCRIT 35.9 % (36.0-47.0); HEMOGLOBIN 12.2 g/dL (12.0-16.0); LYMPHOCYTES # (AUTO) 1.7 X10^3/uL (1.3-2.9); LYMPHOCYTES % (AUTO) 18.7 % (21.0-51.0); MEAN CORPUSCULAR HEMOGLOBIN 30.9 pg (27.0-34.0); MEAN CORPUSCULAR HGB CONC 33.9 g/dL (33.0-35.0); MEAN CORPUSCULAR VOLUME 91.1 fL (80.0-100.0); MEAN PLATELET VOLUME 10.2 fL (7.4-11.0); MONOCYTES # (AUTO) 0.7 x10^3/uL (0.3-0.8); MONOCYTES % (AUTO) 7.7 % (0.0-13.0); NEUTROPHILS # (AUTO) 6.5 x10^3/uL (2.2-4.8); NEUTROPHILS % (AUTO) 71.6 % (42.0-75.0); PLATELET COUNT 171 X10^3/uL (150.0-450.0); RED BLOOD COUNT 3.94 X10^6/uL (3.5-5.4); RED CELL DISTRIBUTION WIDTH 13.6 % (11.6-16.5)
[2017-09-18 06:55] LABS: ALANINE AMINOTRANSFERASE 61 Units/L (12-78); ALBUMIN 2.9 g/dL (3.4-5.0); ALKALINE PHOSPHATASE 87 Units/L (46-116); ASPARTATE AMINO TRANSFERASE 38 Units/L (15-37); BLOOD UREA NITROGEN 43 mg/dL (7-18); CALCIUM 8.6 mg/dL (8.5-10.1); CARBON DIOXIDE 30.9 mmol/L (21-32); CHLORIDE 101 mmol/L (98-107); COR CA(FOR HYPOALB) 9.5 mg/dL (8.5-10.1); CREATININE 2.36 mg/dL (0.55-1.02); SODIUM 140 mmol/L (136-145); TOTAL PROTEIN 6.7 g/dL (6.4-8.2); eGFR BLACK RACES 25 (>60); eGFR NON BLACK RACES 21 (>60)
--- NOTE | 2017-09-18 07:54 | RAD ---
Exam: Chest, frontal view dated 09/18/2017 at 7:07 a.m. History: 87-year-old female with shortness of breath. Comparison: Previous chest radiograph dated 09/17/2017. Findings: Mild cardiomegaly is again seen. No significant vascular congestion. Minimal atelectasis is again not ed at the lung bases. Small left effusion cannot be excluded. Impression: Mild cardiomegaly, unchanged. Bibasilar atelectasis with slight improvement noted on the right. Small left effusion cannot be excluded Reported By:
[2017-09-18] MEDS: TAMBOCOR PO SCH (08:37)
[2017-09-18] MEDS: SYNTHROID 50 mcg TAB PO SCH (08:37)
[2017-09-18] MEDS: MOBIC TAB 15 MG PO SCH (08:37)
[2017-09-18] MEDS: CARDIZEM CD 180 MG PO SCH (08:38)
[2017-09-18] MEDS: CIPRO IV 200 MG PREMIX* 200 MG/100 ML BAG IV SCH ×2 (08:38→20:28)
[2017-09-18] MEDS: COLACE CAP 100 MG PO SCH ×2 (08:38→20:28)
[2017-09-18] MEDS: XOPENEX 1.25 MG/3 ML NEBULE NEB SCH ×4 (09:09→20:53)
--- NOTE | 2017-09-18 10:52 | PCM.PROG ---
Progress Note - Progress Note for Day of Date: 09/18/17 - Subjective Subjective: WAS ADMITTED YESTERDAY FOR CONGESTIVE HEART FAILURE AND HYPERTENSION. TODAY, SHE IS SITTING UP IN BED ON MORNING ROUNDS. SHE IS CURRETNLY DISORIENTED AND ANXIOUS. STAFF IS SITTING AT BEDSIDE AT THIS TIME. ON EXAMINATION, HEART IS REGULAR IN RATE AND RHYTHM. BILATERAL LUNGS CONTINUE WITH RHONCHI AND RALES THROUGHOUT. SHE IS CURRENTLY UTILIZING OXYGEN VIA NASAL CANNULA AT 2L/MIN. ABDOMEN IS ROUND, SOFT, AND NON-TENDER WITH NORMAL BOWEL SOUNDS NOTED TO ALL QUADRANTS. THERE IS NORMAL RANGE OF MOTION NOTED TO ALL EXTREMITIES. HER VITALS THIS MORNING ARE 98.0-699-77-98-139/60. LABS WERE OBTAINED. ABNORMAL LAB VALUES INCLUDE THE FOLLOWING: WBC 12.8, BUN 37, CREATININE 1.99, GLUCOSE 119, AST 72, ALT 90, ALBUMIN 3.2. A SPUTUM CULTURE IS PENDING. A CHEST XRAY WAS OBTAINED AND REVEALED SIGNIFICANT IMPROVEMENT SINCE 1 DAY EARLIER. RESIDUAL FINDINGS NOTED ESPECIALLY AT THE LEFT BASE. AN EKG REVEALED EXTREME TACHYCARDIA WITH WIDE COMPLEX. TODAY, WE WILL START A COLONIDINE PATCH 0.2MG TD WEEKLY AND START PATIENT ON A CARDIZEM DRIP. WE WILL BOLUS HER WITH DIGOXIN 250MCG IVP X 1 AND DISCONTINUE THE AMLODIPINE THAT SHE IS CURRENTLY ON. WE PLAN TO OBTAIN A BRAIN CT WITHOUT CONTRAST. OTHERWISE, WE WILL FOLLOW UP WITH AM LABS, CHEST XRAY, AND EKG AND CONTINUE TO MONITOR PATIENT. - Past Medical Family Social History Past Med/Fam/Surg Hx: No changes since H&P Allergies: Allergies codeine Allergy (Verified 08/20/17 16:21) lorazepam [From Ativan] Allergy (Verified 08/20/17 16:21) Penicillins Allergy (Verified 08/20/17 16:21) albuterol Adverse Reaction (Verified 09/16/17 08:47) - Review of Systems ROS: No change since H&P - Vital Signs and I&O's Vital Signs: Temperature 97.4 F Pulse Rate [Right Radial] 78 Pulse Rate 71 Respiratory Rate 16 Blood Pressure [Right Arm] 190/90 Blood Pressure [Left Arm] 143/65 Blood Pressure 200/96 O2 Sat by Pulse Oximetry 100 Intake and Output: Intake & Output 09/15/17 09/16/17 09/17/17 09/18/17 11:59 11:59 11:59 11:59 Intake Total 739 1287 1487 Output Total 7459 3960 2810 [facility] -[phone] - Physical Exam Oriented: Not Oriented Eyes: Normal Ear: Normal Nose: Other (nasal congestion ) Throat: Normal Respiratory: Generalized, Rales, Rhonchi Cardiovascular: Tachycardia, Edema (BILATERAL LOWER EXTREMITIES). negative: S3 , S4 : Normal Auscultation: Bowel Sounds: Normal Palpation: Normal Tenderness: Normal Skin: Normal Musculoskeletal: Normal Psychiatric: Normal Mood Description: Anxious Affect: Anxious Speech Pattern: Inappropriate - Laboratory and Diagnostics Result Diagrams: 09/18/17 06:05 09/18/17 06:05 Labs: 09/15/17 10:05 Blood Blood Culture - Preliminary 09/15/17 10:00 Blood Blood Culture - Preliminary 09/15/17 10:15 Sputum - Expectorated Sputum Sputum Culture - Final Klebsiella Oxytoca 09/15/17 10:15 Sputum - Expectorated Sputum - Final Laboratory WBC 9.0 X10^3/uL (3.6-10.0) 09/18/17 06:05 RBC 3.94 X10^6/uL (3.5-5.4) 09/18/17 06:05 Hgb 12.2 g/dL (12.0-16.0) 09/18/17 06:05 Hct 35.9 % (36.0-47.0) L 09/18/17 06:05 MCV 91.1 fL (80.0-100.0) 09/18/17 06:05 MCH 30.9 pg (27.0-34.0) 09/18/17 06:05 MCHC 33.9 g/dL (33.0-35.0) 09/18/17 06:05 RDW 13.6 % (11.6-16.5) 09/18/17 06:05 Plt Count 171 X10^3/uL (150.0-450.0) 09/18/17 06:05 MPV 10.2 fL (7.4-11.0) 09/18/17 06:05 Neut % (Auto) 71.6 % (42.0-75.0) 09/18/17 06:05 Lymph % (Auto) 18.7 % (21.0-51.0) L 09/18/17 06:05 [place] % (Auto) 7.7 % (0.0-13.0) 09/18/17 06:05 Eos % (Auto) 1.4 % (0.9-2.9) 09/18/17 06:05 Baso % (Auto) 0.6 % (0.2-1.0) 09/18/17 06:05 Neut # (Auto) 6.5 x10^3/uL (2.2-4.8) H 09/18/17 06:05 Lymph # (Auto) 1.7 X10^3/uL (1.3-2.9) 09/18/17 06:05 [place] # (Auto) 0.7 x10^3/uL (0.3-0.8) 09/18/17 06:05 Eos # (Auto) 0.1 x10^3/uL (0.0-0.2) 09/18/17 06:05 Baso # (Auto) 0.1 X10^3/uL (0.0-0.1) 09/18/17 06:05 Absolute Nucleated RBC 0.0 /100WBC 09/18/17 06:05 Sample Site Rb 09/15/17 11:30 ABG pH 7.300 (7.35-7.45) L 09/15/17 11:30 ABG pCO2 45.0 mmHg (35.0-45.0) 09/15/17 11:30 ABG pO2 89.0 mmHg (80.0-100.0) 09/15/17 11:30 ABG HCO3 22.1 mmol/L (22-26) 09/15/17 11:30 ABG O2 Saturation 96.0 % (90-100) 09/15/17 11:30 ABG Base Excess -4.3 mmol/L (-2.0-2.0) L 09/15/17 11:30 Philip Test Na 09/15/17 11:30 A-a Gradient 568.0 mmHg 09/15/17 11:30 FiO2 100.000 09/15/17 11:30 Blood Gas Comments Judith well lj 09/15/17 11:30 Sodium 140 mmol/L (136-145) 09/18/17 06:05 Corrected Sodium TNP 09/18/17 06:05 Potassium 3.8 mmol/L (3.5-5.1) 09/18/17 06:05 Chloride 101 mmol/L (98-107) 09/18/17 06:05 Carbon Dioxide 30.9 mmol/L (21-32) 09/18/17 06:05 BUN 43 mg/dL (7-18) H 09/18/17 06:05 Creatinine 2.36 mg/dL (0.55-1.02) H 09/18/17 06:05 Est GFR (MDRD) Af Amer 25 (>60) L 09/18/17 06:05 Est GFR (MDRD) Non-Af 21 (>60) L 09/18/17 06:05 Glucose 106 mg/dL (65-99) H 09/18/17 06:05 Lactic Acid 1.9 mmol/L (0.4-2.0) 09/16/17 08:00 Calcium 8.6 mg/dL (8.5-10.1) 09/18/17 06:05 Corrected Calcium 9.5 mg/dL (8.5-10.1) 09/18/17 06:05 Total Bilirubin 0.40 mg/dL (0.2-1.0) 09/18/17 06:05 AST 38 Units/L (15-37) H 09/18/17 06:05 ALT 61 Units/L (12-78) 09/18/17 06:05 Alkaline Phosphatase 87 Units/L (46-116) 09/18/17 06:05 Creatine Kinase 58 Units/L (26-192) 09/15/17 10:05 CK-MB (CK-2) 1.2 ng/mL (0-4.0) 09/15/17 10:05 CK/CKMB % Calc 2.1 % (<4) 09/15/17 10:05 Troponin I < 0.02 ng/mL (0-1.5) 09/15/17 10:05 Total Protein 6.7 g/dL (6.4-8.2) 09/18/17 06:05 Albumin 2.9 g/dL (3.4-5.0) L 09/18/17 06:05 Globulin 3.8 g/dL (2.5-4.5) 09/18/17 06:05 Albumin/Globulin Ratio 0.8 Ratio (1.1-2.1) L 09/18/17 06:05 TSH 3rd Generation 2.302 uIU/mL (0.358-3.74) 09/15/17 10:05 Specimen Type Catherized urine 09/15/17 11:10 Urine Color Yellow (YELLOW) 09/15/17 11:10 Urine Appearance Hazy (CLEAR) 09/15/17 11:10 Urine pH 5.0 (5.0 - 8.0) 09/15/17 11:10 Ur Specific [place] 1.025 (1.000-1.030) 09/15/17 11:10 Urine Protein 2+ (NEGATIVE) 09/15/17 11:10 Urine Glucose (UA) Negative (NEGATIVE) 09/15/17 11:10 Urine Ketones Negative (NEGATIVE) 09/15/17 11:10 Urine Occult Blood 4+ (NEGATIVE) 09/15/17 11:10 Urine Nitrite Negative (NEGATIVE) 09/15/17 11:10 Urine Bilirubin Negative (NEGATIVE) 09/15/17 11:10 Urine Urobilinogen Normal (NORMAL) 09/15/17 11:10 Ur Leukocyte Esterase 1+ (NEGATIVE) 09/15/17 11:10 Urine RBC 10-20 /HPF (NONE SEEN) 09/15/17 11:10 Urine WBC 0-2 /HPF (NONE SEEN) 09/15/17 11:10 Ur Squamous Epith Cells Rare /HPF (NEGATIVE) 09/15/17 11:10 Calcium Oxalate Crystal Rare /HPF (NEGATIVE) 09/15/17 11:10 Urine Bacteria Trace /HPF (NEGATIVE) 09/15/17 11:10 Hyaline Casts Few /LPF (NEGATIVE) 09/15/17 11:10 Coarse Granular Casts Rare /HPF (NEGATIVE) 09/15/17 11:10 Ur Culture Indicated? No/not indicated 09/15/17 11:10 - Plan (1) Congestive heart failure (CHF) Status: Acute Qualifiers: Heart failure type: unspecified Heart failure chronicity: acute on chronic Qualified Code(s): I50.9 - Heart failure, unspecified Plan: lasix 40mg iv bid, supplemental oxygen, respiratory treatments, continue to monitor (2) Hypertension Status: Chronic Qualifiers: Hypertension type: essential hypertension Qualified Code(s): I10 - Essential (primary) hypertension Plan: nitroglycerine drip, clonidine patch 0.2mg td weekly, continue flecanide, lopressor 5mg ivp q4h prn, continue to monitor (3) Cardiac arrhythmia Status: Acute Qualifiers: Arrhythmia type: ventricular tachycardia Qualified Code(s): I47.2 - Ventricular tachycardia Plan: CARDIZEM DRIP, SUPPLEMENTAL OXYGEN, CLINICAL NUTRITIONIST, CONTINUE TO MONITOR (4) Altered mental status Status: Acute Qualifiers: Altered mental status type: transient alteration of awareness Qualified Code(s): R40.4 - Transient alteration of awareness Plan: BRAIN CT, CONTINUE TO MONITOR
[2017-09-18] MEDS ORDERED: LANOXIN PO ONE (14:35)
[2017-09-18] MEDS ORDERED: CARDIZEM SR 120 MG PO ONE (19:00)
[2017-09-18] MEDS ORDERED: LOPRESSOR TAB 25 MG PO ONE (19:00)
[2017-09-18] MEDS: CRESTOR TAB 10 MG PO SCH (20:27)
[2017-09-18] MEDS: XARELTO PO SCH (20:30)
--- NOTE | 2017-09-18 20:57 | PCM.PROG ---
Progress Note - Progress Note for Day of Date: 09/17/17 - Subjective Subjective: WAS ADMITTED YESTERDAY FOR CONGESTIVE HEART FAILURE AND HYPERTENSION. TODAY, SHE IS SITTING UP IN BED ON MORNING ROUNDS. SHE IS ORIENTED AND ANSWERS QUESTIONS APPROPRIATELY THIS MORNING. SHE COMPLAINS OF SHORNTESS OF BREATH AND GENERALIZED WEAKNESS. SHE IS CURRENTLY OFF OF THE CARDIZEM DRIP AT THIS TIME. ON EXAMINATION, SHE IS SLIGHTLY TACHYCARDIC. BILATERAL LUNGS CONTINUE WITH RHONCHI AND RALES THROUGHOUT. SHE IS CURRENTLY UTILIZING OXYGEN VIA NASAL CANNULA AT 2L/MIN. ABDOMEN IS ROUND, SOFT, AND NON- TENDER WITH NORMAL BOWEL SOUNDS NOTED TO ALL QUADRANTS. THERE IS NORMAL RANGE OF MOTION NOTED TO ALL EXTREMITIES. HER VITALS THIS MORNING ARE 97.4-109-20-98%- 108/62. LABS WERE OBTAINED. ABNORMAL LAB VALUES INCLUDE THE FOLLOWING: BUN 35, CREATININE 1.87, GLUCOSE 100, AST 52, ALBUMIN 3.1. SPUTUM CULTURE REPORTED GROWTH OF KLEBSIELLA OXYTOCA. A CHEST XRAY WAS OBTAINED AND REVEALED CARDIOMEGALY WITH MILD PULMONARY VASCULAR CONGESTION. LEFT RETROCARDIAC OPACITY IS AGAIN SEEN. A BRAIN CT WAS OBTAINED YESTERDAY AND REVEALED NO ACUTE INTRACRANIAL PROCESS IDENTIFIED. MILD TO MODERATE GENERALIZED ATROPHY WITH FINDINGS CONSISTENT WITH CHANGES OF CHRONIC SMALL VESSEL ISCHEMIC DISEASE. SHE WAS STARTED ON CIPRO 200MG IV Q12H FOR INFECTION IN LUNGS. TODAY, WE PLAN TO START CRESTOR 5MG PO HS. WE WILL ORDER FOR PHYSICAL THERAPY TO EVALUATE PATIENT. OTHERWISE, WE WILL FOLLOW UP WITH AM LABS, CHEST XRAY, AND EKG AND CONTINUE TO MONITOR PATIENT. - Past Medical Family Social History Past Med/Fam/Surg Hx: No changes since H&P Allergies: Allergies codeine Allergy (Verified 08/20/17 16:21) lorazepam [From Ativan] Allergy (Verified 08/20/17 16:21) Penicillins Allergy (Verified 08/20/17 16:21) albuterol Adverse Reaction (Verified 09/16/17 08:47) - Review of Systems ROS: No change since H&P - Vital Signs and I&O's Vital Signs: Temperature 97.4 F Pulse Rate [Right Radial] 120 Pulse Rate 116 Respiratory Rate 26 Blood Pressure [Right Arm] 190/90 Blood Pressure [Left Arm] 129/74 Blood Pressure 200/96 O2 Sat by Pulse Oximetry 98 Intake and Output: Intake & Output 09/16/17 09/17/17 09/18/17 09/19/17 11:59 11:59 11:59 11:59 Intake Total 697 4009 2922 1007 Output Total 9624 7769 3193 [facility]3566 -[phone] - Physical Exam Oriented: Normal Eyes: Normal Ear: Normal Nose: Other (nasal congestion ) Throat: Normal Respiratory: Generalized, Rales, Rhonchi Cardiovascular: Tachycardia, Edema (BILATERAL LOWER EXTREMITIES). negative: S3 , S4 : Normal Auscultation: Bowel Sounds: Normal Palpation: Normal Tenderness: Normal Skin: Normal Musculoskeletal: Normal Psychiatric: Normal Mood Description: Anxious Affect: Anxious Speech Pattern: Inappropriate - Laboratory and Diagnostics Result Diagrams: 09/18/17 06:05 09/18/17 06:05 Labs: 09/15/17 10:05 Blood Blood Culture - Preliminary 09/15/17 10:00 Blood Blood Culture - Preliminary 09/15/17 10:15 Sputum - Expectorated Sputum Sputum Culture - Final Klebsiella Oxytoca 09/15/17 10:15 Sputum - Expectorated Sputum - Final Laboratory WBC 9.0 X10^3/uL (3.6-10.0) 09/18/17 06:05 RBC 3.94 X10^6/uL (3.5-5.4) 09/18/17 06:05 Hgb 12.2 g/dL (12.0-16.0) 09/18/17 06:05 Hct 35.9 % (36.0-47.0) L 09/18/17 06:05 MCV 91.1 fL (80.0-100.0) 09/18/17 06:05 MCH 30.9 pg (27.0-34.0) 09/18/17 06:05 MCHC 33.9 g/dL (33.0-35.0) 09/18/17 06:05 RDW 13.6 % (11.6-16.5) 09/18/17 06:05 Plt Count 171 X10^3/uL (150.0-450.0) 09/18/17 06:05 MPV 10.2 fL (7.4-11.0) 09/18/17 06:05 Neut % (Auto) 71.6 % (42.0-75.0) 09/18/17 06:05 Lymph % (Auto) 18.7 % (21.0-51.0) L 09/18/17 06:05 [place] % (Auto) 7.7 % (0.0-13.0) 09/18/17 06:05 Eos % (Auto) 1.4 % (0.9-2.9) 09/18/17 06:05 Baso % (Auto) 0.6 % (0.2-1.0) 09/18/17 06:05 Neut # (Auto) 6.5 x10^3/uL (2.2-4.8) H 09/18/17 06:05 Lymph # (Auto) 1.7 X10^3/uL (1.3-2.9) 09/18/17 06:05 [place] # (Auto) 0.7 x10^3/uL (0.3-0.8) 09/18/17 06:05 Eos # (Auto) 0.1 x10^3/uL (0.0-0.2) 09/18/17 06:05 Baso # (Auto) 0.1 X10^3/uL (0.0-0.1) 09/18/17 06:05 Absolute Nucleated RBC 0.0 /100WBC 09/18/17 06:05 Sample Site Rb 09/15/17 11:30 ABG pH 7.300 (7.35-7.45) L 09/15/17 11:30 ABG pCO2 45.0 mmHg (35.0-45.0) 09/15/17 11:30 ABG pO2 89.0 mmHg (80.0-100.0) 09/15/17 11:30 ABG HCO3 22.1 mmol/L (22-26) 09/15/17 11:30 ABG O2 Saturation 96.0 % (90-100) 09/15/17 11:30 ABG Base Excess -4.3 mmol/L (-2.0-2.0) L 09/15/17 11:30 Philip Test Na 09/15/17 11:30 A-a Gradient 568.0 mmHg 09/15/17 11:30 FiO2 100.000 09/15/17 11:30 Blood Gas Comments Judith well lj 09/15/17 11:30 Sodium 140 mmol/L (136-145) 09/18/17 06:05 Corrected Sodium TNP 09/18/17 06:05 Potassium 3.8 mmol/L (3.5-5.1) 09/18/17 06:05 Chloride 101 mmol/L (98-107) 09/18/17 06:05 Carbon Dioxide 30.9 mmol/L (21-32) 09/18/17 06:05 BUN 43 mg/dL (7-18) H 09/18/17 06:05 Creatinine 2.36 mg/dL (0.55-1.02) H 09/18/17 06:05 Est GFR (MDRD) Af Amer 25 (>60) L 09/18/17 06:05 Est GFR (MDRD) Non-Af 21 (>60) L 09/18/17 06:05 Glucose 106 mg/dL (65-99) H 09/18/17 06:05 Lactic Acid 1.9 mmol/L (0.4-2.0) 09/16/17 08:00 Calcium 8.6 mg/dL (8.5-10.1) 09/18/17 06:05 Corrected Calcium 9.5 mg/dL (8.5-10.1) 09/18/17 06:05 Total Bilirubin 0.40 mg/dL (0.2-1.0) 09/18/17 06:05 AST 38 Units/L (15-37) H 09/18/17 06:05 ALT 61 Units/L (12-78) 09/18/17 06:05 Alkaline Phosphatase 87 Units/L (46-116) 09/18/17 06:05 Creatine Kinase 58 Units/L (26-192) 09/15/17 10:05 CK-MB (CK-2) 1.2 ng/mL (0-4.0) 09/15/17 10:05 CK/CKMB % Calc 2.1 % (<4) 09/15/17 10:05 Troponin I < 0.02 ng/mL (0-1.5) 09/15/17 10:05 Total Protein 6.7 g/dL (6.4-8.2) 09/18/17 06:05 Albumin 2.9 g/dL (3.4-5.0) L 09/18/17 06:05 Globulin 3.8 g/dL (2.5-4.5) 09/18/17 06:05 Albumin/Globulin Ratio 0.8 Ratio (1.1-2.1) L 09/18/17 06:05 TSH 3rd Generation 2.302 uIU/mL (0.358-3.74) 09/15/17 10:05 Specimen Type Catherized urine 09/15/17 11:10 Urine Color Yellow (YELLOW) 09/15/17 11:10 Urine Appearance Hazy (CLEAR) 09/15/17 11:10 Urine pH 5.0 (5.0 - 8.0) 09/15/17 11:10 Ur Specific [place] 1.025 (1.000-1.030) 09/15/17 11:10 Urine Protein 2+ (NEGATIVE) 09/15/17 11:10 Urine Glucose (UA) Negative (NEGATIVE) 09/15/17 11:10 Urine Ketones Negative (NEGATIVE) 09/15/17 11:10 Urine Occult Blood 4+ (NEGATIVE) 09/15/17 11:10 Urine Nitrite Negative (NEGATIVE) 09/15/17 11:10 Urine Bilirubin Negative (NEGATIVE) 09/15/17 11:10 Urine Urobilinogen Normal (NORMAL) 09/15/17 11:10 Ur Leukocyte Esterase 1+ (NEGATIVE) 09/15/17 11:10 Urine RBC 10-20 /HPF (NONE SEEN) 09/15/17 11:10 Urine WBC 0-2 /HPF (NONE SEEN) 09/15/17 11:10 Ur Squamous Epith Cells Rare /HPF (NEGATIVE) 09/15/17 11:10 Calcium Oxalate Crystal Rare /HPF (NEGATIVE) 09/15/17 11:10 Urine Bacteria Trace /HPF (NEGATIVE) 09/15/17 11:10 Hyaline Casts Few /LPF (NEGATIVE) 09/15/17 11:10 Coarse Granular Casts Rare /HPF (NEGATIVE) 09/15/17 11:10 Ur Culture Indicated? No/not indicated 09/15/17 11:10 - Plan (1) Congestive heart failure (CHF) Status: Acute Qualifiers: Heart failure type: unspecified Heart failure chronicity: acute on chronic Qualified Code(s): I50.9 - Heart failure, unspecified Plan: lasix 40mg iv bid, supplemental oxygen, respiratory treatments, continue to monitor (2) Hypertension Status: Chronic Qualifiers: Hypertension type: essential hypertension Qualified Code(s): I10 - Essential (primary) hypertension Plan: nitroglycerine drip, clonidine patch 0.2mg td weekly, continue flecanide, lopressor 5mg ivp q4h prn, continue to monitor (3) Cardiac arrhythmia Status: Acute Qualifiers: Arrhythmia type: ventricular tachycardia Qualified Code(s): I47.2 - Ventricular tachycardia Plan: CARDIZEM CD 180MG PO DAILY, SUPPLEMENTAL OXYGEN, GAS REVERSER, CONTINUE TO MONITOR (4) Pneumonia Status: Acute Qualifiers: Pneumonia type: due to other aerobic Gram-negative bacteria Laterality: left Lung location: unspecified part of lung Qualified Code(s): J15.6 - Pneumonia due to other Gram-negative bacteria Plan: CIPRO 200MG IV Q12H, RESPIRATORY TREATMENTS, SUPPLEMENTAL OXYGEN, CONTINUE TO MONITOR
[2017-09-19 05:49] LABS: BASOPHILS # (AUTO) 0.1 X10^3/uL (0.0-0.1); BASOPHILS % (AUTO) 0.6 % (0.2-1.0); EOSINOPHILS # (AUTO) 0.4 x10^3/uL (0.0-0.2); EOSINOPHILS % (AUTO) 4.4 % (0.9-2.9); HEMATOCRIT 36.9 % (36.0-47.0); HEMOGLOBIN 12.5 g/dL (12.0-16.0); LYMPHOCYTES # (AUTO) 1.7 X10^3/uL (1.3-2.9); LYMPHOCYTES % (AUTO) 20.9 % (21.0-51.0); MEAN CORPUSCULAR HEMOGLOBIN 31.1 pg (27.0-34.0); MEAN CORPUSCULAR HGB CONC 33.9 g/dL (33.0-35.0); MEAN CORPUSCULAR VOLUME 91.8 fL (80.0-100.0); MEAN PLATELET VOLUME 10.2 fL (7.4-11.0); MONOCYTES # (AUTO) 0.7 x10^3/uL (0.3-0.8); MONOCYTES % (AUTO) 8.7 % (0.0-13.0); NEUTROPHILS # (AUTO) 5.5 x10^3/uL (2.2-4.8); NEUTROPHILS % (AUTO) 65.4 % (42.0-75.0); PLATELET COUNT 189 X10^3/uL (150.0-450.0); RED BLOOD COUNT 4.02 X10^6/uL (3.5-5.4); RED CELL DISTRIBUTION WIDTH 13.4 % (11.6-16.5); WHITE BLOOD COUNT 8.4 X10^3/uL (3.6-10.0)
[2017-09-19 05:54] LABS: ALANINE AMINOTRANSFERASE 55 Units/L (12-78); ALBUMIN 2.9 g/dL (3.4-5.0); ALKALINE PHOSPHATASE 87 Units/L (46-116); ASPARTATE AMINO TRANSFERASE 35 Units/L (15-37); BLOOD UREA NITROGEN 39 mg/dL (7-18); CALCIUM 8.8 mg/dL (8.5-10.1); CARBON DIOXIDE 32.3 mmol/L (21-32); CHLORIDE 102 mmol/L (98-107); COR CA(FOR HYPOALB) 9.7 mg/dL (8.5-10.1); CREATININE 1.94 mg/dL (0.55-1.02); SODIUM 140 mmol/L (136-145); TOTAL PROTEIN 6.7 g/dL (6.4-8.2); eGFR BLACK RACES 31 (>60); eGFR NON BLACK RACES 26 (>60)
[2017-09-19] MEDS: XANAX PO SCH ×2 (06:01→14:28)
--- NOTE | 2017-09-19 08:30 | RAD ---
HISTORY: Shortness of breath Study: AP portable chest Comparison: 09/18/2017 Findings: Minimal to mild bibasilar atelectasis is noted. Mild cardiomegaly is present. [id number] dege nerative changes present in the right shoulder with mild in the left shoulder. IMPRESSION: 1. Mild cardiomegaly without evidence of failure. 2. Minimal bibasilar atelectasis/infiltrate, not felt to be significantly changed. Reported By:
[2017-09-19] MEDS: XOPENEX 1.25 MG/3 ML NEBULE NEB SCH ×4 (09:40→20:56)
[2017-09-19] MEDS: CIPRO IV 200 MG PREMIX* 200 MG/100 ML BAG IV SCH ×2 (09:58→20:37)
[2017-09-19] MEDS: TAMBOCOR PO SCH (09:58)
[2017-09-19] MEDS: MOBIC TAB 15 MG PO SCH (09:58)
[2017-09-19] MEDS: SYNTHROID 50 mcg TAB PO SCH (09:58)
[2017-09-19] MEDS: COLACE CAP 100 MG PO SCH ×2 (09:58→20:38)
[2017-09-19] MEDS ORDERED: NS 1/2 1000 ML IV 1,000 ML IV ONE (09:59)
[2017-09-19] MEDS: NS 1/2 1000 ML IV 1,000 ML IV PRN (10:00)
[2017-09-19] MEDS: CARDIZEM CD 180 MG PO SCH (11:35)
[2017-09-19] MEDS ORDERED: XANAX PO PRN (14:28)
--- NOTE | 2017-09-19 20:26 | PCM.PROG ---
Progress Note - Progress Note for Day of Date: 09/18/17 - Subjective Subjective: IS BEING TREATED FOR PNEUMONIA, CONGESTIVE HEART FAILURE, HYPERTENSION, AND ARRYTHMIAS. TODAY, SHE IS ALERT AND ORIENTED, SITTING UP IN BED ON MORNING ROUNDS. SHE COMPLAINS OF SHORNTESS OF BREATH AND GENERALIZED WEAKNESS. SHE IS CURRENTLY OFF OF THE CARDIZEM DRIP AT THIS TIME. ON EXAMINATION , HEART IS REGULAR IN RATE AND RHYTHM. BILATERAL LUNGS CONTINUE WITH RHONCHI AND RALES THROUGHOUT. SHE IS CURRENTLY UTILIZING OXYGEN VIA NASAL CANNULA AT 2L/ MIN. ABDOMEN IS ROUND, SOFT, AND NON-TENDER WITH NORMAL BOWEL SOUNDS NOTED TO ALL QUADRANTS. THERE IS NORMAL RANGE OF MOTION NOTED TO ALL EXTREMITIES. HER VITALS THIS MORNING ARE 97.4-77-20-100%-141/63. LABS WERE OBTAINED. BUN AND CREATININE ARE ELEVATED AT 43/2.36. OTHERWISE, SHE IS HEMODYNAMICALLY STABLE. A CHEST XRAY WAS OBTAINED AND REVEALED MILD CARDIOMEGALY, UNCHANGED. BIBASILAR ATELECTASIS WITH SLIGHT IMPROVEMENT NOTED ON THE RIGHT. SMALL LEFT EFFUSION CANNOT BE EXCLUDED. SHE CONTINUES TO RECEIVE CIPRO 200MG IV Q12H FOR PNEUMONIA. WE WILL HOLD LASIX TODAY DUE TO ELEVATED BUN AND CREATININE. OTHERWISE, WE PLAN TO FOLLOW UP WITH AM LABS AND CONTINUE TO MONITOR PATIENT. - Past Medical Family Social History Past Med/Fam/Surg Hx: No changes since H&P Allergies: Allergies codeine Allergy (Verified 08/20/17 16:21) lorazepam [From Ativan] Allergy (Verified 08/20/17 16:21) Penicillins Allergy (Verified 08/20/17 16:21) albuterol Adverse Reaction (Verified 09/16/17 08:47) - Review of Systems ROS: No change since H&P - Vital Signs and I&O's Vital Signs: Temperature 98.2 F Pulse Rate [Right Radial] 69 Pulse Rate 116 Respiratory Rate 18 Blood Pressure [Right Arm] 190/90 Blood Pressure [Left Arm] 140/65 Blood Pressure 200/96 O2 Sat by Pulse Oximetry 100 Intake and Output: Intake & Output 09/17/17 09/18/17 09/19/17 09/20/17 11:59 11:59 11:59 11:59 Intake Total 7554 3657 2014 805 Output Total 3505 1900 Balance -2438 -413 2014 805 - Physical Exam Oriented: Normal Eyes: Normal Ear: Normal Nose: Other (nasal congestion ) Throat: Normal Respiratory: Generalized, Rhonchi Cardiovascular: Normal, Edema (BILATERAL LOWER EXTREMITIES). negative: S3, S4 : Normal Auscultation: Bowel Sounds: Normal Palpation: Normal Tenderness: Normal Skin: Normal Musculoskeletal: Normal Psychiatric: Normal Mood Description: Anxious Affect: Anxious Speech Pattern: Clear - Laboratory and Diagnostics Result Diagrams: 09/19/17 04:58 09/19/17 04:58 Labs: 09/15/17 10:05 Blood Blood Culture - Preliminary 09/15/17 10:00 Blood Blood Culture - Preliminary 09/15/17 10:15 Sputum - Expectorated Sputum Sputum Culture - Final Klebsiella Oxytoca 09/15/17 10:15 Sputum - Expectorated Sputum - Final Laboratory WBC 8.4 X10^3/uL (3.6-10.0) 09/19/17 04:58 RBC 4.02 X10^6/uL (3.5-5.4) 09/19/17 04:58 Hgb 12.5 g/dL (12.0-16.0) 09/19/17 04:58 Hct 36.9 % (36.0-47.0) 09/19/17 04:58 MCV 91.8 fL (80.0-100.0) 09/19/17 04:58 MCH 31.1 pg (27.0-34.0) 09/19/17 04:58 MCHC 33.9 g/dL (33.0-35.0) 09/19/17 04:58 RDW 13.4 % (11.6-16.5) 09/19/17 04:58 Plt Count 189 X10^3/uL (150.0-450.0) 09/19/17 04:58 MPV 10.2 fL (7.4-11.0) 09/19/17 04:58 Neut % (Auto) 65.4 % (42.0-75.0) 09/19/17 04:58 Lymph % (Auto) 20.9 % (21.0-51.0) L 09/19/17 04:58 [place] % (Auto) 8.7 % (0.0-13.0) 09/19/17 04:58 Eos % (Auto) 4.4 % (0.9-2.9) H 09/19/17 04:58 Baso % (Auto) 0.6 % (0.2-1.0) 09/19/17 04:58 Neut # (Auto) 5.5 x10^3/uL (2.2-4.8) H 09/19/17 04:58 Lymph # (Auto) 1.7 X10^3/uL (1.3-2.9) 09/19/17 04:58 [place] # (Auto) 0.7 x10^3/uL (0.3-0.8) 09/19/17 04:58 Eos # (Auto) 0.4 x10^3/uL (0.0-0.2) H 09/19/17 04:58 Baso # (Auto) 0.1 X10^3/uL (0.0-0.1) 09/19/17 04:58 Absolute Nucleated RBC 0.1 /100WBC 09/19/17 04:58 Sample Site Rb 09/15/17 11:30 ABG pH 7.300 (7.35-7.45) L 09/15/17 11:30 ABG pCO2 45.0 mmHg (35.0-45.0) 09/15/17 11:30 ABG pO2 89.0 mmHg (80.0-100.0) 09/15/17 11:30 ABG HCO3 22.1 mmol/L (22-26) 09/15/17 11:30 ABG O2 Saturation 96.0 % (90-100) 09/15/17 11:30 ABG Base Excess -4.3 mmol/L (-2.0-2.0) L 09/15/17 11:30 Philip Test Na 09/15/17 11:30 A-a Gradient 568.0 mmHg 09/15/17 11:30 FiO2 100.000 09/15/17 11:30 Blood Gas Comments Judith well lj 09/15/17 11:30 Sodium 140 mmol/L (136-145) 09/19/17 04:58 Corrected Sodium TNP 09/19/17 04:58 Potassium 4.5 mmol/L (3.5-5.1) 09/19/17 04:58 Chloride 102 mmol/L (98-107) 09/19/17 04:58 Carbon Dioxide 32.3 mmol/L (21-32) H 09/19/17 04:58 BUN 39 mg/dL (7-18) H 09/19/17 04:58 Creatinine 1.94 mg/dL (0.55-1.02) H 09/19/17 04:58 Est GFR (MDRD) Af Amer 31 (>60) L 09/19/17 04:58 Est GFR (MDRD) Non-Af 26 (>60) L 09/19/17 04:58 Glucose 110 mg/dL (65-99) H 09/19/17 04:58 Lactic Acid 1.9 mmol/L (0.4-2.0) 09/16/17 08:00 Calcium 8.8 mg/dL (8.5-10.1) 09/19/17 04:58 Corrected Calcium 9.7 mg/dL (8.5-10.1) 09/19/17 04:58 Total Bilirubin 0.40 mg/dL (0.2-1.0) 09/19/17 04:58 AST 35 Units/L (15-37) 09/19/17 04:58 ALT 55 Units/L (12-78) 09/19/17 04:58 Alkaline Phosphatase 87 Units/L (46-116) 09/19/17 04:58 Creatine Kinase 58 Units/L (26-192) 09/15/17 10:05 CK-MB (CK-2) 1.2 ng/mL (0-4.0) 09/15/17 10:05 CK/CKMB % Calc 2.1 % (<4) 09/15/17 10:05 Troponin I < 0.02 ng/mL (0-1.5) 09/15/17 10:05 Total Protein 6.7 g/dL (6.4-8.2) 09/19/17 04:58 Albumin 2.9 g/dL (3.4-5.0) L 09/19/17 04:58 Globulin 3.8 g/dL (2.5-4.5) 09/19/17 04:58 Albumin/Globulin Ratio 0.8 Ratio (1.1-2.1) L 09/19/17 04:58 TSH 3rd Generation 2.302 uIU/mL (0.358-3.74) 09/15/17 10:05 Specimen Type Catherized urine 09/15/17 11:10 Urine Color Yellow (YELLOW) 09/15/17 11:10 Urine Appearance Hazy (CLEAR) 09/15/17 11:10 Urine pH 5.0 (5.0 - 8.0) 09/15/17 11:10 Ur Specific [place] 1.025 (1.000-1.030) 09/15/17 11:10 Urine Protein 2+ (NEGATIVE) 09/15/17 11:10 Urine Glucose (UA) Negative (NEGATIVE) 09/15/17 11:10 Urine Ketones Negative (NEGATIVE) 09/15/17 11:10 Urine Occult Blood 4+ (NEGATIVE) 09/15/17 11:10 Urine Nitrite Negative (NEGATIVE) 09/15/17 11:10 Urine Bilirubin Negative (NEGATIVE) 09/15/17 11:10 Urine Urobilinogen Normal (NORMAL) 09/15/17 11:10 Ur Leukocyte Esterase 1+ (NEGATIVE) 09/15/17 11:10 Urine RBC 10-20 /HPF (NONE SEEN) 09/15/17 11:10 Urine WBC 0-2 /HPF (NONE SEEN) 09/15/17 11:10 Ur Squamous Epith Cells Rare /HPF (NEGATIVE) 09/15/17 11:10 Calcium Oxalate Crystal Rare /HPF (NEGATIVE) 09/15/17 11:10 Urine Bacteria Trace /HPF (NEGATIVE) 09/15/17 11:10 Hyaline Casts Few /LPF (NEGATIVE) 09/15/17 11:10 Coarse Granular Casts Rare /HPF (NEGATIVE) 09/15/17 11:10 Ur Culture Indicated? No/not indicated 09/15/17 11:10 Digoxin 1.16 ng/mL (0.9-2) 09/19/17 04:58 - Plan (1) Pneumonia Status: Acute Qualifiers: Pneumonia type: due to other aerobic Gram-negative bacteria Laterality: left Lung location: unspecified part of lung Qualified Code(s): J15.6 - Pneumonia due to other Gram-negative bacteria Plan: CIPRO 200MG IV Q12H, RESPIRATORY TREATMENTS, SUPPLEMENTAL OXYGEN, CONTINUE TO MONITOR (2) Congestive heart failure (CHF) Status: Acute Qualifiers: Heart failure type: unspecified Heart failure chronicity: acute on chronic Qualified Code(s): I50.9 - Heart failure, unspecified Plan: supplemental oxygen, respiratory treatments, continue to monitor (3) Hypertension Status: Chronic Qualifiers: Hypertension type: essential hypertension Qualified Code(s): I10 - Essential (primary) hypertension Plan: clonidine patch 0.2mg td weekly, continue flecanide, lopressor 5mg ivp q4h prn, continue to monitor (4) Cardiac arrhythmia Status: Acute Qualifiers: Arrhythmia type: ventricular tachycardia Qualified Code(s): I47.2 - Ventricular tachycardia Plan: CARDIZEM CD 180MG PO DAILY, SUPPLEMENTAL OXYGEN, PICKER FEEDER, CONTINUE TO MONITOR
[2017-09-19] MEDS: CRESTOR TAB 10 MG PO SCH (20:38)
[2017-09-19] MEDS ORDERED: TOPROL XL PO SCH (21:00)
[2017-09-19] MEDS: XARELTO PO SCH (21:05)
[2017-09-20] MEDS ORDERED: NS 1/2 1000 ML IV 1,000 ML IV ONE (06:08)
[2017-09-20 06:38] LABS: BASOPHILS # (AUTO) 0.1 X10^3/uL (0.0-0.1); EOSINOPHILS # (AUTO) 0.4 x10^3/uL (0.0-0.2); HEMATOCRIT 37.3 % (36.0-47.0); HEMOGLOBIN 12.8 g/dL (12.0-16.0); LYMPHOCYTES # (AUTO) 1.8 X10^3/uL (1.3-2.9); LYMPHOCYTES % (AUTO) 23.9 % (21.0-51.0); MEAN CORPUSCULAR HEMOGLOBIN 31.7 pg (27.0-34.0); MEAN CORPUSCULAR HGB CONC 34.3 g/dL (33.0-35.0); MEAN CORPUSCULAR VOLUME 92.3 fL (80.0-100.0); MEAN PLATELET VOLUME 9.8 fL (7.4-11.0); MONOCYTES # (AUTO) 0.6 x10^3/uL (0.3-0.8); MONOCYTES % (AUTO) 8.2 % (0.0-13.0); NEUTROPHILS # (AUTO) 4.6 x10^3/uL (2.2-4.8); NEUTROPHILS % (AUTO) 61.9 % (42.0-75.0); PLATELET COUNT 199 X10^3/uL (150.0-450.0); RED BLOOD COUNT 4.04 X10^6/uL (3.5-5.4); RED CELL DISTRIBUTION WIDTH 13.4 % (11.6-16.5); WHITE BLOOD COUNT 7.5 X10^3/uL (3.6-10.0)
--- NOTE | 2017-09-20 06:50 | RAD ---
HISTORY: Shortness of breath. Prior history of hypertension and atrial fibrillation. Study: Single-view chest Comparison: 09/19/2017 at 6:28 a.m.. Findings: Trachea is midline. There is cardiomegaly with aortic uncoiling and atherosclerotic calcification of the aortic arch. Improving aeration is noted in the lung bases compared to prior studies. A small john unt of subsegmental atelectasis present in the right lung base medially. The pleural spaces are clear . No CHF is seen. Calcific tendinitis is present involving both shoulders. No acute osseous abnormali ty is seen. IMPRESSION: Cardiomegaly without evidence of CHF. Improving aeration in the lung bases. Reported By:
[2017-09-20 06:52] LABS: ALANINE AMINOTRANSFERASE 51 Units/L (12-78); ALKALINE PHOSPHATASE 90 Units/L (46-116); ASPARTATE AMINO TRANSFERASE 29 Units/L (15-37); BLOOD UREA NITROGEN 35 mg/dL (7-18); CALCIUM 8.7 mg/dL (8.5-10.1); CARBON DIOXIDE 28.8 mmol/L (21-32); CHLORIDE 102 mmol/L (98-107); COR CA(FOR HYPOALB) 9.5 mg/dL (8.5-10.1); CREATININE 1.79 mg/dL (0.55-1.02); SODIUM 140 mmol/L (136-145); TOTAL PROTEIN 6.8 g/dL (6.4-8.2); eGFR BLACK RACES 34 (>60); eGFR NON BLACK RACES 28 (>60)
[2017-09-20] MEDS: XOPENEX 1.25 MG/3 ML NEBULE NEB SCH ×4 (09:09→20:29)
[2017-09-20] MEDS: MOBIC TAB 15 MG PO SCH (09:28)
[2017-09-20] MEDS: CIPRO IV 200 MG PREMIX* 200 MG/100 ML BAG IV SCH ×2 (09:28→21:26)
[2017-09-20] MEDS: COLACE CAP 100 MG PO SCH ×2 (09:28→21:27)
[2017-09-20] MEDS: SYNTHROID 50 mcg TAB PO SCH (09:29)
[2017-09-20] MEDS: TAMBOCOR PO SCH (09:29)
[2017-09-20] MEDS: NS 1/2 1000 ML IV 1,000 ML IV PRN (09:29)
[2017-09-20] MEDS: TOPROL XL PO SCH (11:18)
--- NOTE | 2017-09-20 19:03 | PCM.PROG ---
Progress Note - Progress Note for Day of Date: 09/19/17 - Subjective Subjective: IS BEING TREATED FOR PNEUMONIA, CONGESTIVE HEART FAILURE, HYPERTENSION, AND ARRYTHMIAS. TODAY, SHE IS ALERT AND ORIENTED, SITTING UP IN BED ON MORNING ROUNDS. SHE COMPLAINS OF SHORNTESS OF BREATH AND GENERALIZED WEAKNESS. DURING THE NIGHT, PATIENTS HEART RATE FELL INTO THE 40S. CARDIZEM DRIP WAS TURNED OFF. ON EXAMINATION, HEART RATE IS NOTED TO BE IN THE 50S, NORMAL SINUS RHYTHM ON THE PIANO BUILDER. BILATERAL LUNGS CONTINUE WITH RHONCHI AND RALES THROUGHOUT. SHE IS CURRENTLY UTILIZING OXYGEN VIA NASAL CANNULA AT 2L/MIN. ABDOMEN IS ROUND, SOFT, AND NON-TENDER WITH NORMAL BOWEL SOUNDS NOTED TO ALL QUADRANTS. THERE IS NORMAL RANGE OF MOTION NOTED TO ALL EXTREMITIES. HER VITALS THIS MORNING ARE 97.0-58-16-100%-152/68. LABS WERE OBTAINED. BUN AND CREATININE HAVE SLIGHTLY DECREASED TO 39/1.94. OTHERWISE, SHE REMAINS HEMODYNAMICALLY STABLE. A CHEST XRAY WAS OBTAINED AND REVEALED MILD CARDIOMEGALY WITHOUT EVIDENCE OF FAILURE. MINIMAL BIBASILAR ATELECTASIS/ INFILTRATE, NOT FELT TO BE SIGNIFICANTLY CHANGED. SHE CONTINUES TO RECEIVE CIPRO 200MG IV Q12H FOR PNEUMONIA. TODAY, WE WILL OBTAIN A DIGOXIN LEVEL. WE WILL CONTACT OFFICE FOR A FOLLOW-UP APPOINTMENT. OTHERWISE, WE WILL CONTINUE WITH CURRENT PLAN OF CARE. WE PLAN TO FOLLOW UP WITH AM LABS AND CONTINUE TO MONITOR PATIENT. - Past Medical Family Social History Past Med/Fam/Surg Hx: No changes since H&P Allergies: Allergies codeine Allergy (Verified 08/20/17 16:21) lorazepam [From Ativan] Allergy (Verified 08/20/17 16:21) Penicillins Allergy (Verified 08/20/17 16:21) albuterol Adverse Reaction (Verified 09/16/17 08:47) - Review of Systems ROS: No change since H&P - Vital Signs and I&O's Vital Signs: Temperature 97.0 F Pulse Rate [Right Radial] 71 Pulse Rate 68 Respiratory Rate 19 Blood Pressure [Right Arm] 190/90 Blood Pressure [Left Arm] 148/67 Blood Pressure 200/96 O2 Sat by Pulse Oximetry 100 Intake and Output: Intake & Output 09/18/17 09/19/17 09/20/17 09/21/17 11:59 11:59 11:59 11:59 Intake Total 4543 2014 1410 914 Output Total 1900 Balance -413 2014 1721 944 - Physical Exam Oriented: Normal Eyes: Normal Ear: Normal Nose: Other (nasal congestion ) Throat: Normal Respiratory: Generalized, Rhonchi Cardiovascular: Bradycardia, Edema (BILATERAL LOWER EXTREMITIES). negative: S3 , S4 : Normal Auscultation: Bowel Sounds: Normal Palpation: Normal Tenderness: Normal Skin: Normal Musculoskeletal: Normal Psychiatric: Normal Mood Description: Anxious Affect: Anxious Speech Pattern: Clear - Laboratory and Diagnostics Result Diagrams: 09/20/17 06:00 09/20/17 06:00 Labs: 09/15/17 10:05 Blood Blood Culture - Final 09/15/17 10:00 Blood Blood Culture - Final 09/15/17 10:15 Sputum - Expectorated Sputum Sputum Culture - Final Klebsiella Oxytoca 09/15/17 10:15 Sputum - Expectorated Sputum - Final Laboratory WBC 7.5 X10^3/uL (3.6-10.0) 09/20/17 06:00 RBC 4.04 X10^6/uL (3.5-5.4) 09/20/17 06:00 Hgb 12.8 g/dL (12.0-16.0) 09/20/17 06:00 Hct 37.3 % (36.0-47.0) 09/20/17 06:00 MCV 92.3 fL (80.0-100.0) 09/20/17 06:00 MCH 31.7 pg (27.0-34.0) 09/20/17 06:00 MCHC 34.3 g/dL (33.0-35.0) 09/20/17 06:00 RDW 13.4 % (11.6-16.5) 09/20/17 06:00 Plt Count 199 X10^3/uL (150.0-450.0) 09/20/17 06:00 MPV 9.8 fL (7.4-11.0) 09/20/17 06:00 Neut % (Auto) 61.9 % (42.0-75.0) 09/20/17 06:00 Lymph % (Auto) 23.9 % (21.0-51.0) 09/20/17 06:00 [place] % (Auto) 8.2 % (0.0-13.0) 09/20/17 06:00 Eos % (Auto) 5.0 % (0.9-2.9) H 09/20/17 06:00 Baso % (Auto) 1.0 % (0.2-1.0) 09/20/17 06:00 Neut # (Auto) 4.6 x10^3/uL (2.2-4.8) 09/20/17 06:00 Lymph # (Auto) 1.8 X10^3/uL (1.3-2.9) 09/20/17 06:00 [place] # (Auto) 0.6 x10^3/uL (0.3-0.8) 09/20/17 06:00 Eos # (Auto) 0.4 x10^3/uL (0.0-0.2) H 09/20/17 06:00 Baso # (Auto) 0.1 X10^3/uL (0.0-0.1) 09/20/17 06:00 Absolute Nucleated RBC 0.0 /100WBC 09/20/17 06:00 Sample Site Rb 09/15/17 11:30 ABG pH 7.300 (7.35-7.45) L 09/15/17 11:30 ABG pCO2 45.0 mmHg (35.0-45.0) 09/15/17 11:30 ABG pO2 89.0 mmHg (80.0-100.0) 09/15/17 11:30 ABG HCO3 22.1 mmol/L (22-26) 09/15/17 11:30 ABG O2 Saturation 96.0 % (90-100) 09/15/17 11:30 ABG Base Excess -4.3 mmol/L (-2.0-2.0) L 09/15/17 11:30 Philip Test Na 09/15/17 11:30 A-a Gradient 568.0 mmHg 09/15/17 11:30 FiO2 100.000 09/15/17 11:30 Blood Gas Comments Judith well lj 09/15/17 11:30 Sodium 140 mmol/L (136-145) 09/20/17 06:00 Corrected Sodium TNP 09/20/17 06:00 Potassium 4.2 mmol/L (3.5-5.1) 09/20/17 06:00 Chloride 102 mmol/L (98-107) 09/20/17 06:00 Carbon Dioxide 28.8 mmol/L (21-32) 09/20/17 06:00 BUN 35 mg/dL (7-18) H 09/20/17 06:00 Creatinine 1.79 mg/dL (0.55-1.02) H 09/20/17 06:00 Est GFR (MDRD) Af Amer 34 (>60) L 09/20/17 06:00 Est GFR (MDRD) Non-Af 28 (>60) L 09/20/17 06:00 Glucose 110 mg/dL (65-99) H 09/20/17 06:00 Lactic Acid 1.9 mmol/L (0.4-2.0) 09/16/17 08:00 Calcium 8.7 mg/dL (8.5-10.1) 09/20/17 06:00 Corrected Calcium 9.5 mg/dL (8.5-10.1) 09/20/17 06:00 Total Bilirubin 0.40 mg/dL (0.2-1.0) 09/20/17 06:00 AST 29 Units/L (15-37) 09/20/17 06:00 ALT 51 Units/L (12-78) 09/20/17 06:00 Alkaline Phosphatase 90 Units/L (46-116) 09/20/17 06:00 Creatine Kinase 58 Units/L (26-192) 09/15/17 10:05 CK-MB (CK-2) 1.2 ng/mL (0-4.0) 09/15/17 10:05 CK/CKMB % Calc 2.1 % (<4) 09/15/17 10:05 Troponin I < 0.02 ng/mL (0-1.5) 09/15/17 10:05 Total Protein 6.8 g/dL (6.4-8.2) 09/20/17 06:00 Albumin 3.0 g/dL (3.4-5.0) L 09/20/17 06:00 Globulin 3.8 g/dL (2.5-4.5) 09/20/17 06:00 Albumin/Globulin Ratio 0.8 Ratio (1.1-2.1) L 09/20/17 06:00 TSH 3rd Generation 2.302 uIU/mL (0.358-3.74) 09/15/17 10:05 Specimen Type Catherized urine 09/15/17 11:10 Urine Color Yellow (YELLOW) 09/15/17 11:10 Urine Appearance Hazy (CLEAR) 09/15/17 11:10 Urine pH 5.0 (5.0 - 8.0) 09/15/17 11:10 Ur Specific [place] 1.025 (1.000-1.030) 09/15/17 11:10 Urine Protein 2+ (NEGATIVE) 09/15/17 11:10 Urine Glucose (UA) Negative (NEGATIVE) 09/15/17 11:10 Urine Ketones Negative (NEGATIVE) 09/15/17 11:10 Urine Occult Blood 4+ (NEGATIVE) 09/15/17 11:10 Urine Nitrite Negative (NEGATIVE) 09/15/17 11:10 Urine Bilirubin Negative (NEGATIVE) 09/15/17 11:10 Urine Urobilinogen Normal (NORMAL) 09/15/17 11:10 Ur Leukocyte Esterase 1+ (NEGATIVE) 09/15/17 11:10 Urine RBC 10-20 /HPF (NONE SEEN) 09/15/17 11:10 Urine WBC 0-2 /HPF (NONE SEEN) 09/15/17 11:10 Ur Squamous Epith Cells Rare /HPF (NEGATIVE) 09/15/17 11:10 Calcium Oxalate Crystal Rare /HPF (NEGATIVE) 09/15/17 11:10 Urine Bacteria Trace /HPF (NEGATIVE) 09/15/17 11:10 Hyaline Casts Few /LPF (NEGATIVE) 09/15/17 11:10 Coarse Granular Casts Rare /HPF (NEGATIVE) 09/15/17 11:10 Ur Culture Indicated? No/not indicated 09/15/17 11:10 Digoxin 1.16 ng/mL (0.9-2) 09/19/17 04:58 - Plan (1) Pneumonia Status: Acute Qualifiers: Pneumonia type: due to other aerobic Gram-negative bacteria Laterality: left Lung location: unspecified part of lung Qualified Code(s): J15.6 - Pneumonia due to other Gram-negative bacteria Plan: CIPRO 200MG IV Q12H, RESPIRATORY TREATMENTS, SUPPLEMENTAL OXYGEN, CONTINUE TO MONITOR (2) Congestive heart failure (CHF) Status: Acute Qualifiers: Heart failure type: unspecified Heart failure chronicity: acute on chronic Qualified Code(s): I50.9 - Heart failure, unspecified Plan: supplemental oxygen, respiratory treatments, continue to monitor (3) Hypertension Status: Chronic Qualifiers: Hypertension type: essential hypertension Qualified Code(s): I10 - Essential (primary) hypertension Plan: clonidine patch 0.2mg td weekly, continue flecanide, lopressor 5mg ivp q4h prn, continue to monitor (4) Cardiac arrhythmia Status: Acute Qualifiers: Arrhythmia type: ventricular tachycardia Qualified Code(s): I47.2 - Ventricular tachycardia Plan: HOLD CARDIZEM CD 180MG PO DAILY TODAY. CHECK DIGOXIN LEVEL, SUPPLEMENTAL OXYGEN, PIANO BUILDER, CONTINUE TO MONITOR
[2017-09-20] MEDS: XARELTO PO SCH (21:27)
[2017-09-20] MEDS: CRESTOR TAB 10 MG PO SCH (21:27)
[2017-09-21 05:32] LABS: BASOPHILS # (AUTO) 0.1 X10^3/uL (0.0-0.1); BASOPHILS % (AUTO) 1.2 % (0.2-1.0); EOSINOPHILS # (AUTO) 0.5 x10^3/uL (0.0-0.2); EOSINOPHILS % (AUTO) 7.1 % (0.9-2.9); HEMATOCRIT 38.4 % (36.0-47.0); LYMPHOCYTES # (AUTO) 2.1 X10^3/uL (1.3-2.9); LYMPHOCYTES % (AUTO) 27.6 % (21.0-51.0); MEAN CORPUSCULAR HEMOGLOBIN 30.8 pg (27.0-34.0); MEAN CORPUSCULAR HGB CONC 33.8 g/dL (33.0-35.0); MEAN CORPUSCULAR VOLUME 91.1 fL (80.0-100.0); MEAN PLATELET VOLUME 9.7 fL (7.4-11.0); MONOCYTES # (AUTO) 0.6 x10^3/uL (0.3-0.8); MONOCYTES % (AUTO) 8.3 % (0.0-13.0); NEUTROPHILS # (AUTO) 4.1 x10^3/uL (2.2-4.8); NEUTROPHILS % (AUTO) 55.8 % (42.0-75.0); PLATELET COUNT 209 X10^3/uL (150.0-450.0); RED BLOOD COUNT 4.21 X10^6/uL (3.5-5.4); RED CELL DISTRIBUTION WIDTH 13.4 % (11.6-16.5); WHITE BLOOD COUNT 7.4 X10^3/uL (3.6-10.0)
[2017-09-21 05:46] LABS: ALANINE AMINOTRANSFERASE 46 Units/L (12-78); ALBUMIN 3.1 g/dL (3.4-5.0); ALKALINE PHOSPHATASE 93 Units/L (46-116); ASPARTATE AMINO TRANSFERASE 33 Units/L (15-37); BLOOD UREA NITROGEN 29 mg/dL (7-18); CALCIUM 8.8 mg/dL (8.5-10.1); CARBON DIOXIDE 29.7 mmol/L (21-32); CHLORIDE 103 mmol/L (98-107); COR CA(FOR HYPOALB) 9.5 mg/dL (8.5-10.1); CREATININE 1.53 mg/dL (0.55-1.02); SODIUM 141 mmol/L (136-145); eGFR BLACK RACES 41 (>60); eGFR NON BLACK RACES 34 (>60)
--- NOTE | 2017-09-21 07:46 | RAD ---
HISTORY: Shortness of breath Study: Chest AP portable Comparison: 09/20/2017 Findings: The heart is enlarged. No congestive heart failure is noted. The lungs are mildly hyperinflated but f ree of acute infiltrates. No pleural effusions are identified. The bony thorax is unremarkable. IMPRESSION: Moderate cardiomegaly without congestive heart failure Lungs hyperinflated but clear Reported By:
[2017-09-21] MEDS: TAMBOCOR PO SCH (08:25)
[2017-09-21] MEDS: SYNTHROID 50 mcg TAB PO SCH (08:26)
[2017-09-21] MEDS: MOBIC TAB 15 MG PO SCH (08:26)
[2017-09-21] MEDS: COLACE CAP 100 MG PO SCH (08:26)
[2017-09-21] MEDS: TOPROL XL PO SCH (08:32)
[2017-09-21] MEDS: XOPENEX 1.25 MG/3 ML NEBULE NEB SCH (09:38)
[2017-09-21] MEDS ORDERED: CIPRO TAB 500 MG PO NR (10:00)
[2017-09-21 10:04] VITALS: BP 136/61
== END 2017-09-21 11:00 | disposition home health service (06) | DRG 291 ==
LOC: ER 09:32 → ICU 11:54
PROVIDERS: ADMIT Obstetrics & Gynecology Obstetrics; ATTEND Internal Medicine
DX: I50.9 Heart failure, unspecified (principal); J15.6 Pneumonia due to other Gram-negative bacteria; R06.02 Shortness of breath; I47.2 Ventricular tachycardia; I10 Essential (primary) hypertension; E03.8 Other specified hypothyroidism; I48.91 Unspecified atrial fibrillation; R40.4 Transient alteration of awareness; R26.89 Other abnormalities of gait and mobility; R94.31 Abnormal electrocardiogram [ECG] [EKG]
CPT/HCPCS: 36415; 36600; 51702; 70450; 71045; 71046; 80053; 80162; 81001; 82550; 82553; 82803; 83605; 84443; 84484; 85025; 87040; 87070; 87077; 87186; 87205; 93005; 93306; 94640; 94660; 96365; 96374; 96375; 97535; 99284; A4216; A4222; A4618; A7030; J0744; J1160; J1940; J1956; J2250; J2270; J2930; J3490; J7620

== ENCOUNTER 2018-11-21 21:05 | Inpatient (IN) ==
--- NOTE | 2018-11-21 21:19 | DR.SOBA ---
HPI Time Seen Time Seen by Provider: 11/21/18 21:13 PMH PMH Past Medical History: Hypertension and Hypothyroidism Surgical History: Hysterectomy Family History Family Medical History: Cancer Social History Do you use any recreational Drugs:: No PE Vital Signs Vitals: Temperature 99.4 F Pulse Rate [Apical] 73 Pulse Rate 75 Respiratory Rate 20 Blood Pressure [Right Arm] 190/90 Blood Pressure [Left Arm] 131/61 Blood Pressure 132/61 O2 Sat by Pulse Oximetry 97 ROR Labs Reviewed Result Diagrams: 11/21/18 21:34 11/21/18 21:34 Laboratory: WBC 7.0 X10^3/uL (3.6-10.0) 11/21/18 21:34 RBC 3.68 X10^6/uL (3.5-5.4) 11/21/18 21:34 Hgb 11.5 g/dL (12.0-16.0) L 11/21/18 21:34 Hct 33.7 % (36.0-47.0) L 11/21/18 21:34 MCV 91.7 fL (80.0-100.0) 11/21/18 21:34 MCH 31.2 pg (27.0-34.0) 11/21/18 21:34 MCHC 34.0 g/dL (33.0-35.0) 11/21/18 21:34 RDW 14.1 % (11.6-16.5) 11/21/18 21:34 Plt Count 148 X10^3/uL (150.0-450.0) L 11/21/18 21:34 MPV 8.5 fL (7.4-11.0) 11/21/18 21:34 Neut % (Auto) 48.5 % (42.0-75.0) 11/21/18 21:34 Lymph % (Auto) 39.8 % (21.0-51.0) 11/21/18 21:34 [place] % (Auto) 7.4 % (0.0-13.0) 11/21/18 21:34 Eos % (Auto) 3.4 % (0.9-2.9) H 11/21/18 21:34 Baso % (Auto) 0.9 % (0.2-1.0) 11/21/18 21:34 Neut # (Auto) 3.4 x10^3/uL (2.2-4.8) 11/21/18 21:34 Lymph # (Auto) 2.8 X10^3/uL (1.3-2.9) 11/21/18 21:34 [place] # (Auto) 0.5 x10^3/uL (0.3-0.8) 11/21/18 21:34 Eos # (Auto) 0.2 x10^3/uL (0.0-0.2) 11/21/18 21:34 Baso # (Auto) 0.1 X10^3/uL (0.0-0.1) 11/21/18 21:34 Absolute Nucleated RBC 0.0 /100WBC 11/21/18 21:34 Sodium 136 mmol/L (136-145) 11/21/18 21:34 Corrected Sodium TNP 11/21/18 21:34 Potassium 4.0 mmol/L (3.5-5.1) 11/21/18 21:34 Chloride 99 mmol/L (98-107) 11/21/18 21:34 Carbon Dioxide 28.5 mmol/L (21-32) 11/21/18 21:34 BUN 46 mg/dL (7-18) H 11/21/18 21:34 Creatinine 2.77 mg/dL (0.55-1.02) H 11/21/18 21:34 Est GFR (MDRD) Af Amer 21 (>60) L 11/21/18 21:34 Est GFR (MDRD) Non-Af 17 (>60) L 11/21/18 21:34 Glucose 89 mg/dL (65-99) 11/21/18 21:34 Lactic Acid 0.8 mmol/L (0.4-2.0) 11/21/18 21:34 Calcium 8.7 mg/dL (8.5-10.1) 11/21/18 21:34 Corrected Calcium 9.7 mg/dL (8.5-10.1) 11/21/18 21:34 Total Bilirubin 0.70 mg/dL (0.2-1.0) 11/21/18 21:34 AST 23 Units/L (15-37) 11/21/18 21:34 ALT 16 Units/L (12-78) 11/21/18 21:34 Alkaline Phosphatase 98 Units/L (46-116) 11/21/18 21:34 Creatine Kinase 44 Units/L (26-192) 11/21/18 21:34 CK-MB (CK-2) < 1.0 ng/mL (0-4.0) 11/21/18 21:34 CK/CKMB % Calc 2.3 % (<4) 11/21/18 21:34 Troponin I 0.02 ng/mL (0-1.5) 11/21/18 21:34 C-Reactive Protein 3.60 mg/L (0-3.0) H 11/21/18 21:34 Total Protein 6.2 g/dL (6.4-8.2) L 11/21/18 21:34 Albumin 2.8 g/dL (3.4-5.0) L 11/21/18 21:34 Globulin 3.4 g/dL (2.5-4.5) 11/21/18 21:34 Albumin/Globulin Ratio 0.8 Ratio (1.1-2.1) L 11/21/18 21:34 Specimen Type Clean catch urine 11/21/18 22:53 Urine Color Yellow (YELLOW) 11/21/18 22:53 Urine Appearance Clear (CLEAR) 11/21/18 22:53 Urine pH 5.0 (5.0 - 8.0) 11/21/18 22:53 Ur Specific [place] 1.015 (1.000-1.030) 11/21/18 22:53 Urine Protein Negative (NEGATIVE) 11/21/18 22:53 Urine Glucose (UA) Negative (NEGATIVE) 11/21/18 22:53 Urine Ketones Negative (NEGATIVE) 11/21/18 22:53 Urine Occult Blood Negative (NEGATIVE) 11/21/18 22:53 Urine Nitrite Negative (NEGATIVE) 11/21/18 22:53 Urine Bilirubin Negative (NEGATIVE) 11/21/18 22:53 Urine Urobilinogen Normal (NORMAL) 11/21/18 22:53 Ur Leukocyte Esterase Negative (NEGATIVE) 11/21/18 22:53 Instructions Instructions: Chest Wall Pain
[2018-11-21 21:28] VITALS: BMI 24.2
[2018-11-21 21:56] LABS: BASOPHILS # (AUTO) 0.1 X10^3/uL (0.0-0.1); BASOPHILS % (AUTO) 0.9 % (0.2-1.0); EOSINOPHILS # (AUTO) 0.2 x10^3/uL (0.0-0.2); EOSINOPHILS % (AUTO) 3.4 % (0.9-2.9); HEMATOCRIT 33.7 % (36.0-47.0); HEMOGLOBIN 11.5 g/dL (12.0-16.0); LYMPHOCYTES # (AUTO) 2.8 X10^3/uL (1.3-2.9); LYMPHOCYTES % (AUTO) 39.8 % (21.0-51.0); MEAN CORPUSCULAR HEMOGLOBIN 31.2 pg (27.0-34.0); MEAN CORPUSCULAR VOLUME 91.7 fL (80.0-100.0); MEAN PLATELET VOLUME 8.5 fL (7.4-11.0); MONOCYTES # (AUTO) 0.5 x10^3/uL (0.3-0.8); MONOCYTES % (AUTO) 7.4 % (0.0-13.0); NEUTROPHILS # (AUTO) 3.4 x10^3/uL (2.2-4.8); NEUTROPHILS % (AUTO) 48.5 % (42.0-75.0); PLATELET COUNT 148 X10^3/uL (150.0-450.0); RED BLOOD COUNT 3.68 X10^6/uL (3.5-5.4); RED CELL DISTRIBUTION WIDTH 14.1 % (11.6-16.5)
--- NOTE | 2018-11-21 22:07 | CT ---
CT brain without contrast Indication:Not feeling well Comparison: 09/16/2017 Technique: Multiple axial images of the brain were obtained from the skull base to the vertex without administration of IV contrast. Dose reduction techniques including automated exposure control (AEC) and adjustment of mA and kV were utilized. Findings: Generalized cerebral atrophy with moderate bilateral periventricular and deep white matter hypoattenuation. No acute intraparenchymal hemorrhage or mass can be identified. No extra-axial fluid collections are seen. No alteration in the attenuation of the brain parenchyma can be identified to suggest acute or subacute ischemic change. The ventricular system is symmetric and nondilated. The extracranial structures are grossly unremarkable. IMPRESSION: 1. No acute intracranial hemorrhage or significant change from prior examination. Reported By:
[2018-11-21 22:20] LABS: BLOOD UREA NITROGEN 46 mg/dL (7-18); CALCIUM 8.7 mg/dL (8.5-10.1); CARBON DIOXIDE 28.5 mmol/L (21-32); CHLORIDE 99 mmol/L (98-107); CREATININE 2.77 mg/dL (0.55-1.02); SODIUM 136 mmol/L (136-145); TROPONIN I 0.02 ng/mL (0-1.5); eGFR NON BLACK RACES 17 (>60)
[2018-11-21 22:21] LABS: LACTIC ACID 0.8 mmol/L (0.4-2.0)
--- NOTE | 2018-11-21 22:23 | CT ---
CT right hip without contrast Indication: Right hip pain Technique: 3 mm axial images of the right hip performed without IV contrast administration. Coronal and sagittal reformatted images are performed. Dose reduction modulation was performed for reduce radiation dose to the patient. 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 Calcification of the superior acetabular labrum likely in the setting of chronic labral tear. Advanced pubic symphysis osteoarthritic change is noted. There is no fracture of the femoral head or neck. No malalignment. There is a small soft tissue contusion within the lateral aspect of the right thigh visualized lumbar spine demonstrates moderate spondylosis at L4-5 and L5-S1 without spondylolisthesis or fracture. Imaging of the deep pelvis demonstrates no acute inflammatory process. Impression: 1.No acute fracture or malalignment of the right hip. Small soft tissue contusion within the lateral aspect of the right thigh. 2. 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 3. Advanced osteitis pubis changes. Reported By:
[2018-11-21 22:25] LABS: ALANINE AMINOTRANSFERASE 16 Units/L (12-78); ALBUMIN 2.8 g/dL (3.4-5.0); ALKALINE PHOSPHATASE 98 Units/L (46-116); ASPARTATE AMINO TRANSFERASE 23 Units/L (15-37); CKMB % 2.3 % (<4); COR CA(FOR HYPOALB) 9.7 mg/dL (8.5-10.1); CREATINE KINASE 44 Units/L (26-192); CREATINE KINASE MB < 1.0 ng/mL (0-4.0); TOTAL PROTEIN 6.2 g/dL (6.4-8.2)
--- NOTE | 2018-11-21 22:32 | RAD ---
HISTORY: Found down Study: Single view of the chest. Comparison: None. Findings: The cardiomediastinal silhouette is normal. No focal consolidations, pleural effusions or pneumothorax. Osseous structures demonstrate no acute abnormality. Bilateral hyper expansion with coarsening of interstitial markings. IMPRESSION: 1. No acute cardiopulmonary process. 2. Findings of COPD. Reported By:
[2018-11-21 23:02] LABS: BILIRUBIN,URINE NEGATIVE (NEGATIVE); BLOOD/HEMOGLOBIN,URINE NEGATIVE (NEGATIVE); GLUCOSE, URINE NEGATIVE (NEGATIVE); KETONES,URINE NEGATIVE (NEGATIVE); LEUKOCYTE ESTERASE ,URINE NEGATIVE (NEGATIVE); NITRITES,URINE NEGATIVE (NEGATIVE); PROTEIN,URINE NEGATIVE (NEGATIVE); UROBILINOGEN,URINE NORMAL (NORMAL)
[2018-11-21 23:03] LABS: APPEARANCE,URINE CLEAR (CLEAR); COLOR,URINE YELLOW (YELLOW)
[2018-11-22] MEDS ORDERED: NS 1000 ML 1,000 ML ONE (02:37)
[2018-11-22] MEDS: NS 1000 ML 1,000 ML IV SCH ×4 (02:55→20:04)
[2018-11-22 05:35] LABS: BASOPHILS # (AUTO) 0.1 X10^3/uL (0.0-0.1); EOSINOPHILS # (AUTO) 0.3 x10^3/uL (0.0-0.2); EOSINOPHILS % (AUTO) 3.8 % (0.9-2.9); HEMATOCRIT 33.2 % (36.0-47.0); HEMOGLOBIN 11.3 g/dL (12.0-16.0); LYMPHOCYTES # (AUTO) 2.7 X10^3/uL (1.3-2.9); LYMPHOCYTES % (AUTO) 38.9 % (21.0-51.0); MEAN CORPUSCULAR HEMOGLOBIN 31.5 pg (27.0-34.0); MEAN CORPUSCULAR VOLUME 92.6 fL (80.0-100.0); MONOCYTES # (AUTO) 0.5 x10^3/uL (0.3-0.8); MONOCYTES % (AUTO) 6.7 % (0.0-13.0); NEUTROPHILS # (AUTO) 3.5 x10^3/uL (2.2-4.8); NEUTROPHILS % (AUTO) 49.6 % (42.0-75.0); PLATELET COUNT 151 X10^3/uL (150.0-450.0); RED BLOOD COUNT 3.58 X10^6/uL (3.5-5.4); RED CELL DISTRIBUTION WIDTH 13.9 % (11.6-16.5); WHITE BLOOD COUNT 7.1 X10^3/uL (3.6-10.0)
[2018-11-22 05:52] LABS: ALBUMIN 2.6 g/dL (3.4-5.0); ALKALINE PHOSPHATASE 95 Units/L (46-116); ASPARTATE AMINO TRANSFERASE 22 Units/L (15-37); BLOOD UREA NITROGEN 46 mg/dL (7-18); CALCIUM 8.7 mg/dL (8.5-10.1); CHLORIDE 100 mmol/L (98-107); COR CA(FOR HYPOALB) 9.8 mg/dL (8.5-10.1); CREATININE 2.69 mg/dL (0.55-1.02); SODIUM 137 mmol/L (136-145); TOTAL PROTEIN 5.7 g/dL (6.4-8.2); eGFR NON BLACK RACES 18 (>60)
[2018-11-22 06:06] LABS: ALANINE AMINOTRANSFERASE 15 Units/L (12-78)
[2018-11-22 06:14] LABS: CKMB % 2.1 % (<4); CREATINE KINASE 48 Units/L (26-192); CREATINE KINASE MB < 1.0 ng/mL (0-4.0); TROPONIN I 0.03 ng/mL (0-1.5)
[2018-11-22] MEDS: SYNTHROID 50 mcg TAB PO SCH (08:24)
[2018-11-22] MEDS: ASPIRIN EC 81 MG PO SCH (08:25)
[2018-11-22] MEDS: CELEXA PO SCH (08:25)
[2018-11-22] MEDS ORDERED: ZESTRIL TAB 5 MG PO SCH (09:00)
[2018-11-22] MEDS ORDERED: COREG TAB 3.125 MG PO SCH (09:00)
[2018-11-22] MEDS ORDERED: CELEBREX PO SCH (09:00)
[2018-11-22] MEDS ORDERED: CARDIZEM INJ 125 MG VIAL 125 MG in NS 100 ML IV 100 ML IV PRN (09:21)
[2018-11-22 12:09] LABS: CREATINE KINASE MB 1.7 ng/mL (0-4.0); TROPONIN I 0.06 ng/mL (0-1.5)
[2018-11-22] MEDS: ELIQUIS PO SCH ×2 (13:57→20:20)
[2018-11-22] MEDS: TOPROL XL PO SCH (17:28)
[2018-11-23] MEDS: NS 1000 ML 1,000 ML IV SCH (04:49)
[2018-11-23 05:35] LABS: BASOPHILS % (AUTO) 0.7 % (0.2-1.0); EOSINOPHILS # (AUTO) 0.3 x10^3/uL (0.0-0.2); EOSINOPHILS % (AUTO) 4.3 % (0.9-2.9); HEMATOCRIT 31.7 % (36.0-47.0); HEMOGLOBIN 10.6 g/dL (12.0-16.0); LYMPHOCYTES # (AUTO) 2.4 X10^3/uL (1.3-2.9); LYMPHOCYTES % (AUTO) 38.6 % (21.0-51.0); MEAN CORPUSCULAR HEMOGLOBIN 31.1 pg (27.0-34.0); MEAN CORPUSCULAR HGB CONC 33.5 g/dL (33.0-35.0); MEAN CORPUSCULAR VOLUME 92.8 fL (80.0-100.0); MEAN PLATELET VOLUME 9.2 fL (7.4-11.0); MONOCYTES # (AUTO) 0.5 x10^3/uL (0.3-0.8); MONOCYTES % (AUTO) 7.9 % (0.0-13.0); NEUTROPHILS % (AUTO) 48.5 % (42.0-75.0); PLATELET COUNT 143 X10^3/uL (150.0-450.0); RED BLOOD COUNT 3.41 X10^6/uL (3.5-5.4); RED CELL DISTRIBUTION WIDTH 13.9 % (11.6-16.5); WHITE BLOOD COUNT 6.1 X10^3/uL (3.6-10.0)
[2018-11-23 05:48] LABS: ALANINE AMINOTRANSFERASE < 6 Units/L (12-78); ALBUMIN 2.5 g/dL (3.4-5.0); ALKALINE PHOSPHATASE 92 Units/L (46-116); ASPARTATE AMINO TRANSFERASE 25 Units/L (15-37); BLOOD UREA NITROGEN 38 mg/dL (7-18); CALCIUM 8.5 mg/dL (8.5-10.1); CARBON DIOXIDE 28.6 mmol/L (21-32); CHLORIDE 105 mmol/L (98-107); COR CA(FOR HYPOALB) 9.7 mg/dL (8.5-10.1); CREATININE 1.87 mg/dL (0.55-1.02); SODIUM 138 mmol/L (136-145); TOTAL PROTEIN 5.3 g/dL (6.4-8.2); eGFR NON BLACK RACES 27 (>60)
[2018-11-23] MEDS: ELIQUIS PO SCH (08:30)
[2018-11-23] MEDS: TOPROL XL PO SCH (08:30)
[2018-11-23] MEDS: SYNTHROID 50 mcg TAB PO SCH (08:30)
[2018-11-23] MEDS: ASPIRIN EC 81 MG PO SCH (08:30)
[2018-11-23] MEDS: CELEXA PO SCH (08:30)
[2018-11-23 09:23] VITALS: BP 157/70
[2018-11-23] MEDS ORDERED: MILK OF MAGNESIA PO SCH (21:00)
[2018-11-23] MEDS ORDERED: COLACE CAP 100 MG PO SCH (21:00)
--- NOTE | 2018-12-04 13:03 | DR.CARTERS ---
Short Stay Summary - Short Stay Summary for: Short Stay Summary for Date of:: 11/23/18 - Admission Date Date of Admission: 11/22/18 - Discharge Date Discharge Date: 11/23/18 - Admission Diagnoses (1) Atrial fibrillation Status: Acute (2) Shortness of breath Status: Acute - Hospital Course Hospital Course: IS A 88 YEAR OLD PATIENT OF [place]. SHE PRESENTED TO THE ER WITH REPORTS OF SHORTNESS OF BREATH AND WEAKNESS. SYMPTOMS REPORTEDLY STARTED TWO DAYS AGO AND HAS PROGRESSIVELY GOTTEN WORSE. PATIENT REPORTS THAT SHE HAD FELL AT HOME AND HAD BEEN COMPLAINING OF RIGHT HIP PAIN. ON ARRIVAL, VITALS WERE 99.4-18-75-95%-132/61. LABS WERE OBTAINED. ABNORMAL LAB VALUES INCLUDED THE FOLLOWING: HGB 11.5, HCT 33.7, BUN 46, CREATININE 2.77, CRP 3.60, TOTAL PROTEIN 6.2, ALBUMIN 2.8. CARDIAC ENZYMES WERE WITHIN NORMAL LIMITS. BLOOD CULTURES PENDING. A CHEST XRAY WAS OBTAINED AND REVEALED: NO ACUTE CARDIOPULMONARY PROCESS. FINDINGS OF COPD. BRAIN CT OBTAINED AND REVEALED NO ACUTE INTRACRANIAL HEMORRHAGE OR SIGNIFICANT CHANGE FROM PRIOR EXAMINATION. A CT OF THE RIGHT HIP REVEALED: No acute fracture or malalignment of the right hip. Small soft tissue contusion within the lateral aspect of the right thigh. 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 Advanced osteitis pubis changes. WE ADMITTED PATIENT FOR FURTHER EVALUATION AND TREATMENT OF SHORTNESS OF BREATH. WE PLANNED TO OBTAIN SERIAL CARDIAC ENZYMES AND EKGS AND CONTINUE TO MONITOR LABS AND CHEST XRAY. AN EKG WAS OBTAINED AT 04:35 AND REVEALED ATRIAL FIBRILLATION. AT THAT TIME, PATIENT DENIED SOB, CHEST PAIN, AND WAS IN NO APPARENT DISTRESS. HR WAS NOTED TO BE IN THE 140S. SHE WAS TRANSFERRED TO THE INTENSIVE CARE UNIT FOR CLOSER OBSERVATION. SHE WAS STARTED ON ELIQUIS 2.5MG PO BID. ON THE NEXT MORNING, PATIENT IS ALERT AND ORIENTED, SITTING UP IN CHAIR ON MORNING ROUNDS. SHE DENIES PAIN OR SHORTNESS OF BREAHT AND REPORTS FEELING WELL. HER HR WAS NOTED TO BE IN THE 50s-60s THROUGHOUT THE NIGHT. HER VITALS THIS MORNING ARE 98.0-72-18-97%-157/70. LABS WERE OBTAINED. ABNORMAL LAB VALUES INCLUDE THE FOLLOWING: RBC 3.41, HGB 10.6, HCT 31.7, PLT COUNT 143, BUN 38, CREATININE 1.87, ALT LESS THAN 6, TOTAL PROTEIN 5.3, ALBUMIN 2.5. MOST RECENT E KG REVEALED SINUS RHYTHM WITH HR 68. WE PLANNED FOR DISCHARGE. INSTRUCTIONS FOR MEDICATIONS AND FOLLOW UP WERE DISCUSSED WITH PATIENT AND FAMILY. THEY VERBALIZED UNDERSTANDING. SHE WAS DISCHARGED HOME IN STABLE CONDITION WITH NEW PRESCRIPTIONS FOR ELIQUIS 2.5MG PO BID, METOPROLOL XL 25MG PO DAILY, AND HER HOME MEDICATIONS WERE RESUMED. SHE IS INSTRUCTED TO FOLLOW-UP WITH HER PRIMARY CARE PHYSICIAN IN 3 DAYS. - Discharge Medications Discharge Medications: Home Medication List aspirin [Aspir-81] 81 mg PO DAILY 11/21/18 [History] carvedilol 3.125 mg PO BID 11/21/18 [History] celecoxib 200 mg PO DAILY 11/21/18 [History] citalopram 10 mg PO DAILY 11/21/18 [History] furosemide 10 mg PO DAILY 11/21/18 [History] lansoprazole [Prevacid] 30 mg PO BID #60 cap 11/21/18 [Rx] ranitidine HCl [Zantac Maximum Strength] 150 mg PO BID #60 tab 11/21/18 [Rx] apixaban [Eliquis] 2.5 mg PO BID #60 tab 11/23/18 [Rx] metoprolol succinate [Toprol XL] 25 mg PO QDAY #30 tab 11/23/18 [Rx] Prescriptions: apixaban [Eliquis] Aravind Hernandez lansoprazole [Prevacid] ZORA KEATING metoprolol succinate [Toprol XL] Aravind Hernandez ranitidine HCl [Zantac Maximum Strength] ZORA KEATING Risks, benefits, and alternatives of opioids discussed: Yes Prescription drug monitoring program results: PDMP reviewed and no concerns identified - Discharge Plan Disposition: HOME, SELF-CARE Condition: Stable Prescriptions: apixaban [Eliquis] 2.5 mg PO BID #60 tab lansoprazole [Prevacid] 30 mg PO BID #60 cap metoprolol succinate [Toprol XL] 25 mg PO QDAY #30 tab ranitidine HCl [Zantac Maximum Strength] 150 mg PO BID #60 tab - Follow up/Referrals Follow up/Referrals: MARIANO ANAND [Primary Care Provider] - 3 days - Instructions Instructions: Heart Failure, [id number], Chest Wall Pain, Atrial Fibrillation, [id number] Additional Instructions: diet as tolerated. activity as tolerated
== END 2018-11-23 10:04 | disposition home or self-care (01) | DRG 310 ==
LOC: ER 21:07 → MED/SURG 21:07 → ICU 11-22 09:22
PROVIDERS: ADMIT Internal Medicine; ATTEND Internal Medicine
DX: I48.91 Unspecified atrial fibrillation; S70.01XA Contusion of right hip, initial encounter; X58.XXXA Exposure to other specified factors, initial encounter; R53.1 Weakness; R79.82 Elevated C-reactive protein (CRP); R94.31 Abnormal electrocardiogram [ECG] [EKG]; R94.4 Abnormal results of kidney function studies; E86.0 Dehydration; E03.8 Other specified hypothyroidism; Y92.9 Unspecified place or not applicable; I10 Essential (primary) hypertension; R07.89 Other chest pain
CPT/HCPCS: 36415; 70450; 71010; 71045; 73700; 80053; 81003; 82550; 82553; 83605; 83735; 84484; 85025; 86140; 87040; 93005; 94760; 96365; 99284; A4222; G0378; J7030

== ENCOUNTER 2018-12-15 21:03 | Inpatient (IN) ==
[2018-12-15] MEDS ORDERED: ADENOCARD INJ 6 MG IVP ONE ×4 (21:04→21:37)
[2018-12-15] MEDS ORDERED: NS 1000 ML 1,000 ML IV ONE ×2 (21:07→22:07)
[2018-12-15] MEDS ORDERED: ADENOCARD INJ 6 MG ONE ×2 (21:07→21:14)
--- NOTE | 2018-12-15 21:31 | DR.AMS ---
HPI Time Seen Time Seen by Provider: 12/15/18 21:07 HPI Comment HPI Comment: EMS was called to the residence of patient and upon arrival she was noted to have AMS, wound to lower legs (treated) mild dehydration Complaint Cheif Complaint Doctors Comments: AMS,Nausea and vomiting, Dehydration PMH PMH Past Surgical History: Yes Surgical History: Hysterectomy Family History Family Medical History: Coronary Artery Disease and Hypertension Social History Do you use any recreational Drugs:: No ROS Review of Systems Constitutional: No Symptoms Reported Eyes: No Symptoms Reported ENTM: No Symptoms Reported Respiratoy: No Symptoms Reported Cardiovascular: No Symptoms Reported Gastrointestinal/Abdominal: No Symptoms Reported Genitourinary: No Symptoms Reported Neurological: No Symptoms Reported Musculoskeletal: No Symptoms Reported Integumentary: No Symptoms Reported Hematologic/Lymphatic: No Symptoms Reported Endocrine: No Symptoms Reported Psychiatric: No Symptoms Reported All Other Systems: Reviewed and Negative PE Vitals Vital Signs: Pulse Pulse Resp BP BP BP Pulse Ox 12/15/18 21:48 128 H 0 L 97 12/15/18 21:45 132 H 24 114/55 98 12/15/18 21:43 160 H 22 95/60 98 12/15/18 21:38 135 H 24 97 12/15/18 21:30 131 H 25 H 96/51 95 12/15/18 21:29 129 H 20 116/55 93 L 12/15/18 21:21 135 H 23 115/52 115/52 97 12/15/18 21:15 135 H 131 H 25 H 116/65 116/65 98 12/15/18 21:08 160 H 25 H 99/68 98 11/23/18 08:00 157/70 11/22/18 08:00 114/54 11/22/18 04:00 106/57 General Limitations: No Limitations General Appearance: Alert and In No Apparent Distress Head Head Exam: Normal Inspection, Atraumatic and Normocephalic Eyes Eye exam: Normal Appearance, PERRL and EOMI Pupils: Regular, Round: Bilateral ENT ENT Exam: Normal Exam, Normal Oropharynx, Normal External Ear Exam, Mucous Membranes Moist and TM's Normal Bilaterally External Ear Exam: Normal External Inspection and Auricular Hematoma TM/Canal Exam: Bilateral: Normal Nose Exam: Normal Nose Exam and Sinus Tenderness Mouth Exam: Normal Inspection Throat Exam: Normal Inspection and Tonsillar Erythema Neck Neck Exam: Normal Inspection and Full ROM Chest Chest Inspection: Normal Inspection and Symmetric Chest Wall Rise Respiratory Respiratory Exam: Normal Lung Sounds Bilat and Accessory Muscle Use Respiratory Exam: Bilateral: Clear to Auscultation Cardiovascular Cardiovascular Exam: Regular Rate and Normal Rhythm Abdominal Exam Abdominal Exam: Normal Inspection, Normal Bowel Sounds and Soft Extremities Extremities Exam: Normal Inspection and Full ROM Back Back Exam: Normal Inspection and Full ROM Neurological Neurological Exam: Alert, Motor Sensory Deficit and Reflexes Normal Speech: Fluid Speech Cranial Nerve Exam: EOM Function (II, III, IV, ): Normal Psychological Psychiatric Exam: Depressed and Agitated Expanded Psychiatric Exam: Poor Eye Contact Skin Skin Exam: Warm, Dry, Intact and Normal Color COURSE Treatment Treatment: Adenosine 12mg total IVP, NS HR 122, NS Reevaluation 1st: Improved Consultation Called: 23:00 Consultation Comments: Dr. Rendon agreed to admit for further evaluation and treatment ROR Labs Reviewed Laboratory Results Reviewed?: Yes Result Diagrams: 12/15/18 21:40 12/15/18 21:40 Laboratory: WBC 10.1 X10^3/uL (3.6-10.0) H 12/15/18 21:40 RBC 3.34 X10^6/uL (3.5-5.4) L 12/15/18 21:40 Hgb 10.4 g/dL (12.0-16.0) L 12/15/18 21:40 Hct 31.0 % (36.0-47.0) L 12/15/18 21:40 MCV 92.7 fL (80.0-100.0) 12/15/18 21:40 MCH 31.1 pg (27.0-34.0) 12/15/18 21:40 MCHC 33.6 g/dL (33.0-35.0) 12/15/18 21:40 RDW 14.0 % (11.6-16.5) 12/15/18 21:40 Plt Count 136 X10^3/uL (150.0-450.0) L 12/15/18 21:40 MPV 9.0 fL (7.4-11.0) 12/15/18 21:40 Neut % (Auto) 77.1 % (42.0-75.0) H 12/15/18 21:40 Lymph % (Auto) 15.8 % (21.0-51.0) L 12/15/18 21:40 Dillon % (Auto) 6.0 % (0.0-13.0) 12/15/18 21:40 Eos % (Auto) 0.4 % (0.9-2.9) L 12/15/18 21:40 Baso % (Auto) 0.7 % (0.2-1.0) 12/15/18 21:40 Neut # (Auto) 7.8 x10^3/uL (2.2-4.8) H 12/15/18 21:40 Lymph # (Auto) 1.6 X10^3/uL (1.3-2.9) 12/15/18 21:40 Dillon # (Auto) 0.6 x10^3/uL (0.3-0.8) 12/15/18 21:40 Eos # (Auto) 0.0 x10^3/uL (0.0-0.2) 12/15/18 21:40 Baso # (Auto) 0.1 X10^3/uL (0.0-0.1) 12/15/18 21:40 Absolute Nucleated RBC 0.0 /100WBC 12/15/18 21:40 Sodium 135 mmol/L (136-145) L 12/15/18 21:40 Corrected Sodium TNP 12/15/18 21:40 Potassium 3.8 mmol/L (3.5-5.1) 12/15/18 21:40 Chloride 103 mmol/L (98-107) 12/15/18 21:40 Carbon Dioxide 25.4 mmol/L (21-32) 12/15/18 21:40 BUN 15 mg/dL (7-18) 12/15/18 21:40 Creatinine 1.44 mg/dL (0.55-1.02) H 12/15/18 21:40 Est GFR (MDRD) Af Amer 44 (>60) L 12/15/18 21:40 Est GFR (MDRD) Non-Af 36 (>60) L 12/15/18 21:40 Glucose 97 mg/dL (65-99) 12/15/18 21:40 Calcium 8.2 mg/dL (8.5-10.1) L 12/15/18 21:40 Corrected Calcium 9.5 mg/dL (8.5-10.1) 12/15/18 21:40 Total Bilirubin 0.40 mg/dL (0.2-1.0) 12/15/18 21:40 AST 19 Units/L (15-37) 12/15/18 21:40 ALT 7 Units/L (12-78) L 12/15/18 21:40 Alkaline Phosphatase 84 Units/L (46-116) 12/15/18 21:40 Creatine Kinase 55 Units/L (26-192) 12/15/18 21:40 CK-MB (CK-2) < 1.0 ng/mL (0-4.0) 12/15/18 21:40 CK/CKMB % Calc 1.8 % (<4) 12/15/18 21:40 Troponin I 0.05 ng/mL (0-1.5) 12/15/18 21:40 C-Reactive Protein 27.40 mg/L (0-3.0) H 12/15/18 21:40 Total Protein 5.1 g/dL (6.4-8.2) L 12/15/18 21:40 Albumin 2.4 g/dL (3.4-5.0) L 12/15/18 21:40 Globulin 2.7 g/dL (2.5-4.5) 12/15/18 21:40 Albumin/Globulin Ratio 0.9 Ratio (1.1-2.1) L 12/15/18 21:40 Specimen Type Catherized urine 12/15/18 21:40 Urine Color Yellow (YELLOW) 12/15/18 21:40 Urine Appearance Clear (CLEAR) 12/15/18 21:40 Urine pH 5.0 (5.0 - 8.0) 12/15/18 21:40 Ur Specific [place] 1.015 (1.000-1.030) 12/15/18 21:40 Urine Protein 1+ (NEGATIVE) 12/15/18 21:40 Urine Glucose (UA) Negative (NEGATIVE) 12/15/18 21:40 Urine Ketones Negative (NEGATIVE) 12/15/18 21:40 Urine Occult Blood Negative (NEGATIVE) 12/15/18 21:40 Urine Nitrite Negative (NEGATIVE) 12/15/18 21:40 Urine Bilirubin Negative (NEGATIVE) 12/15/18 21:40 Urine Urobilinogen Normal (NORMAL) 12/15/18 21:40 Ur Leukocyte Esterase 1+ (NEGATIVE) 12/15/18 21:40 Urine RBC None seen /HPF (NONE SEEN) 12/15/18 21:40 Urine WBC 0-2 /HPF (NONE SEEN) 12/15/18 21:40 Ur Squamous Epith Cells Rare /HPF (NEGATIVE) 12/15/18 21:40 Urine Bacteria Negative /HPF (NEGATIVE) 12/15/18 21:40 Ur Culture Indicated? No/not indicated 12/15/18 21:40 Other Results Comments: CT Brain: No acute intracranial abnormalities. Advanced cortical atrophy and microangiopathic ischemic white matter changes of the supratentorial brain. 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 Lungs: Mild cardiomegaly with accentuation of the left heart border typical of left ventricular hypertrophy. Mild vascular congestion/interstitial edema suspected, superimposed on chronic fibrous changes. XRAY XRAY Interpreted by: Radiologist Opioid Opioid Risk Tool Total: 0 Total Score Risk Category: Low Risk Copyright: Jaya CRAMER predicting aberrant behaviors ADDITIONAL NOTES Additional Notes Additional Notes: Admit to the service of Dr. Rendon
[2018-12-15 21:54] LABS: BASOPHILS # (AUTO) 0.1 X10^3/uL (0.0-0.1); BASOPHILS % (AUTO) 0.7 % (0.2-1.0); EOSINOPHILS % (AUTO) 0.4 % (0.9-2.9); HEMOGLOBIN 10.4 g/dL (12.0-16.0); LYMPHOCYTES # (AUTO) 1.6 X10^3/uL (1.3-2.9); LYMPHOCYTES % (AUTO) 15.8 % (21.0-51.0); MEAN CORPUSCULAR HEMOGLOBIN 31.1 pg (27.0-34.0); MEAN CORPUSCULAR HGB CONC 33.6 g/dL (33.0-35.0); MEAN CORPUSCULAR VOLUME 92.7 fL (80.0-100.0); MONOCYTES # (AUTO) 0.6 x10^3/uL (0.3-0.8); NEUTROPHILS # (AUTO) 7.8 x10^3/uL (2.2-4.8); NEUTROPHILS % (AUTO) 77.1 % (42.0-75.0); PLATELET COUNT 136 X10^3/uL (150.0-450.0); RED BLOOD COUNT 3.34 X10^6/uL (3.5-5.4); WHITE BLOOD COUNT 10.1 X10^3/uL (3.6-10.0)
[2018-12-15 21:58] LABS: BILIRUBIN,URINE NEGATIVE (NEGATIVE); BLOOD/HEMOGLOBIN,URINE NEGATIVE (NEGATIVE); GLUCOSE, URINE NEGATIVE (NEGATIVE); KETONES,URINE NEGATIVE (NEGATIVE); LEUKOCYTE ESTERASE ,URINE 1+ (NEGATIVE); NITRITES,URINE NEGATIVE (NEGATIVE); PROTEIN,URINE 1+ (NEGATIVE); UROBILINOGEN,URINE NORMAL (NORMAL)
[2018-12-15 22:11] LABS: BLOOD UREA NITROGEN 15 mg/dL (7-18); CALCIUM 8.2 mg/dL (8.5-10.1); CARBON DIOXIDE 25.4 mmol/L (21-32); CHLORIDE 103 mmol/L (98-107); CREATININE 1.44 mg/dL (0.55-1.02); SODIUM 135 mmol/L (136-145); TROPONIN I 0.05 ng/mL (0-1.5); eGFR NON BLACK RACES 36 (>60)
[2018-12-15 22:15] LABS: ALANINE AMINOTRANSFERASE 7 Units/L (12-78); ALBUMIN 2.4 g/dL (3.4-5.0); ASPARTATE AMINO TRANSFERASE 19 Units/L (15-37); CKMB % 1.8 % (<4); COR CA(FOR HYPOALB) 9.5 mg/dL (8.5-10.1); CREATINE KINASE 55 Units/L (26-192); CREATINE KINASE MB < 1.0 ng/mL (0-4.0); TOTAL PROTEIN 5.1 g/dL (6.4-8.2)
--- NOTE | 2018-12-15 22:25 | RAD ---
Portable chest Clinical indication: Altered mental status, hypertension and weakness Comparison: 11/21/2018. Findings: Low lung volumes are observed. There is biapical pleural thickening. There is accentuation of the left heart border typical of left ventricular hypertrophy. Coarsening of the interstitium and subpleural reticulation indicate background of mild fibrous lung changes. However when compared to study of 11/21/2018, central pulmonary vasculature appears more accentuated and there is coarsening of the interstitium with a few Collin B-lines seen in the periphery of the lung. Impression: Mild cardiomegaly with accentuation of the left heart border typical of left ventricular hypertrophy. Mild vascular congestion/interstitial edema suspected, superimposed on chronic fibrous changes. Clinical correlation and follow-up recommended. Reported By:
[2018-12-15 22:26] LABS: ALKALINE PHOSPHATASE 84 Units/L (46-116)
--- NOTE | 2018-12-15 22:29 | CT ---
HISTORY: Altered mental status Study: CT HEAD WITHOUT CONTRAST Comparison: 11/21/2018 Technique: Multiple axial images of the brain were obtained from the skull base to the vertex without administration of IV contrast. Findings: There is no intracranial hemorrhage or extra-axial fluid collection. There is no mass effect, midline shift or cerebral edema pattern. Confluent periventricular and subcortical white matter hypoattenuation is observed, most likely on the basis of chronic microangiopathic ischemia. There is a chronic lacunar infarct of the right cerebellum. No acute, large artery territorial infarction is identified. Generalized cortical volume loss is age appropriate, and the ventricular size is concordant to the degree of overall cortical atrophy. The calvarium is intact. The imaged paranasal sinuses and mastoid air cells are predominantly clear. Atheromatous calcifications are associated with the bilateral cavernous ICA segments. IMPRESSION: No acute intracranial abnormalities. 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 Individualized dose optimization techniques were utilized to reduce radiation dose through one or more of the following means: automated exposure control, adjustment of mA and/or KV according to patient size, or through use of iterative reconstruction technique. Reported By:
[2018-12-15 22:33] LABS: APPEARANCE,URINE CLEAR (CLEAR); BACTERIA,URINE NEGATIVE /HPF (NEGATIVE); COLOR,URINE YELLOW (YELLOW); RBC,URINE NONE SEEN /HPF (NONE SEEN); SQUAMOUS EPITHELIAL CELL,UR RARE /HPF (NEGATIVE)
[2018-12-15] MEDS: NS 1000 ML 1,000 ML IV SCH (23:04)
[2018-12-15] MEDS ORDERED: CARDIZEM INJ 125 MG VIAL ONE (23:12)
[2018-12-15] MEDS ORDERED: NS 100 ML IV 100 ML ONE (23:13)
[2018-12-15] MEDS ORDERED: CARDIZEM INJ 50 MG VIAL ONE (23:18)
[2018-12-15] MEDS ORDERED: CARDIZEM INJ 50 MG VIAL IVP ONE (23:21)
[2018-12-15] MEDS: CARDIZEM INJ 125 MG VIAL 125 MG in NS 100 ML IV 100 ML IV PRN (23:29)
[2018-12-16 01:34] VITALS: BMI 22.8
[2018-12-16] MEDS: SYNTHROID 50 mcg TAB PO SCH (06:27)
[2018-12-16] MEDS: NS 1000 ML 1,000 ML IV SCH ×2 (06:27→15:50)
[2018-12-16 07:23] LABS: BASOPHILS # (AUTO) 0.1 X10^3/uL (0.0-0.1); BASOPHILS % (AUTO) 0.7 % (0.2-1.0); EOSINOPHILS % (AUTO) 0.2 % (0.9-2.9); HEMATOCRIT 31.4 % (36.0-47.0); HEMOGLOBIN 10.4 g/dL (12.0-16.0); LYMPHOCYTES # (AUTO) 2.4 X10^3/uL (1.3-2.9); LYMPHOCYTES % (AUTO) 20.6 % (21.0-51.0); MEAN CORPUSCULAR HEMOGLOBIN 30.6 pg (27.0-34.0); MEAN CORPUSCULAR HGB CONC 33.1 g/dL (33.0-35.0); MEAN CORPUSCULAR VOLUME 92.4 fL (80.0-100.0); MEAN PLATELET VOLUME 9.4 fL (7.4-11.0); MONOCYTES # (AUTO) 0.6 x10^3/uL (0.3-0.8); MONOCYTES % (AUTO) 5.3 % (0.0-13.0); NEUTROPHILS # (AUTO) 8.4 x10^3/uL (2.2-4.8); NEUTROPHILS % (AUTO) 73.2 % (42.0-75.0); PLATELET COUNT 141 X10^3/uL (150.0-450.0); RED CELL DISTRIBUTION WIDTH 13.9 % (11.6-16.5); WHITE BLOOD COUNT 11.5 X10^3/uL (3.6-10.0)
[2018-12-16 07:25] LABS: ALANINE AMINOTRANSFERASE 13 Units/L (12-78); ALBUMIN 2.4 g/dL (3.4-5.0); ALKALINE PHOSPHATASE 81 Units/L (46-116); ASPARTATE AMINO TRANSFERASE 31 Units/L (15-37); BLOOD UREA NITROGEN 15 mg/dL (7-18); CALCIUM 8.7 mg/dL (8.5-10.1); CARBON DIOXIDE 21.7 mmol/L (21-32); CHLORIDE 106 mmol/L (98-107); SODIUM 137 mmol/L (136-145); TOTAL PROTEIN 5.4 g/dL (6.4-8.2); eGFR NON BLACK RACES 38 (>60)
[2018-12-16 07:38] LABS: PLATELET MORPHOLOGY COMMENT NORMAL (NORMAL)
[2018-12-16] MEDS: LASIX PO SCH (09:48)
[2018-12-16] MEDS: COREG TAB 3.125 MG PO SCH ×2 (09:48→21:08)
[2018-12-16] MEDS: CELEBREX PO SCH (09:48)
[2018-12-16] MEDS: ELIQUIS PO SCH ×2 (09:49→21:08)
[2018-12-16] MEDS: TOPROL XL PO SCH (09:49)
[2018-12-16] MEDS: ZESTRIL TAB 5 MG PO SCH (09:49)
[2018-12-16] MEDS: ASPIRIN EC 81 MG PO SCH (09:49)
[2018-12-16] MEDS: ZANTAC PO SCH (09:50)
[2018-12-16] MEDS: CELEXA PO SCH (09:50)
[2018-12-16] MEDS: PREVACID PO SCH ×2 (09:50→21:07)
[2018-12-16] MEDS: ROCEPHIN VIAL 1 GRAM IVP SCH (10:01)
[2018-12-16 10:42] LABS: CREATINE KINASE MB 1.7 ng/mL (0-4.0); TROPONIN I 0.07 ng/mL (0-1.5)
[2018-12-16] MEDS: CARDIZEM INJ 125 MG VIAL 125 MG in NS 100 ML IV 100 ML IV PRN (13:00)
[2018-12-16 16:17] LABS: CKMB % 1.4 % (<4); TROPONIN I 0.06 ng/mL (0-1.5)
--- NOTE | 2018-12-16 17:50 | DR.H&P ---
H&P - History & Physical for Day of: H&P Date: 12/15/18 - Chief Complaint Chief Complaint: AMS, CHEST CONGESTION, WEAKNESS - History of Present Illness History of Present Illness: 88 [facility] ER ADMISSION AFTER PRESENTING WITH EMS FAMILY REPORTING AMS, PT WAS NOT RESPONDING TO FAMILY MEMBERS, BUT OPEN EYES AND BREATHING WITH CHEST CONGESTION AND CO LLE SWELLING. PT WAS IN AFIB WITH RVR IN ER.PT HAS PMH OF AFIB, HTN, OA, KELLEY, CAD. PT WAS TREATED IN ER, CARDIZEM DRIP PLACED IN ICU - Past Medical History Past Medical History: Anxiety, CHF, Hypertension, Hypothyroidism Additional Medical History: Cataracts, Atrial Fibrillation, Constipation, Frequent UTI's - Past Surgical History Surgical History: Hysterectomy, Other - Family History Family Medical History: Coronary Artery Disease, Hypertension - Social History Does patient currently use any type of tobacco product: No Have you used tobacco products in the last 12 months: No Type of Tobacco Use: None Does any household member use tobacco: No Alcohol Use: None Drug Use: None - Medications Home Medications: codeine Allergy (Verified 12/15/18 21:45) lorazepam [From Ativan] Allergy (Verified 12/15/18 21:45) Penicillins Allergy (Verified 12/15/18 21:45) albuterol Adverse Reaction (Verified 12/15/18 21:45) - Review of Systems Constitutional: Weakness Eyes: No Symptoms Reported ENT: No Symptoms Reported Respiratory: Cough, Shortness of Breath, Sputum, Wheezing Cardiovascular: Palpitations, Edema (LLE) Gastrointestinal: Nausea Genitourinary: No Symptoms Reported Musculoskeletal: No Symptoms Reported Skin: No Symptoms Reported Neurological: Weakness, Confusion (DECREASED RESPONSIVENESS) - Physical Exam Vital Signs: Temperature 98.8 F Pulse Rate [Left Radial] 131 Pulse Rate 52 Respiratory Rate 18 Blood Pressure [Right Arm] 115/52 Blood Pressure [Left Arm] 106/57 Blood Pressure 111/53 O2 Sat by Pulse Oximetry 100 Oriented: Normal Eyes: Normal Ear: Normal Nose: Normal Throat: Dry Respiratory: RLL Diminished, LLL Diminished Cardiovascular: Tachycardia, Irregular, Edema : Normal Auscultation: Bowel Sounds: Normal, Absent Tenderness: Normal Skin: Decreased Turgur, Red, Tender (LLE FOOT AND ANKLE) Musculoskeletal: Left, Ankle, Foot, Swelling, Tender Psychiatric: Anxiety Speech Pattern: Clear, Appropriate - Assessment/Plan (1) Altered mental status Qualifiers: Altered mental status type: transient alteration of awareness Qualified C ode(s): R40.4 - Transient alteration of awareness Status: Acute Plan: ADMIT ICU, ADMISSION LABS. CARDIZEM DRIP, SERIAL CE AND EKG. CXR ON ADMISSION, STRICT I & OS. SUPPLEMENTAL O2, CT HEAD IN ER. BP MONITORING,IV LASIX, VERIFY HOME MEDICATION (2) Pneumonia Status: Acute (3) Congestive heart failure (CHF) Qualifiers: Heart failure type: unspecified Heart failure chronicity: acute on chronic Qualified Code(s): I50.9 - Heart failure, unspecified Status: Acute (4) Cardiac arrhythmia Qualifiers: Arrhythmia type: ventricular tachycardia Qualified Code(s): I47.2 - Ventricular tachycardia Status: Acute (5) Atrial fibrillation Status: Acute (6) Shortness of breath Status: Acute (7) Hypertension Qualifiers: Hypertension type: essential hypertension Qualified Code(s): I10 - Essential (primary) hypertension Status: Chronic - Allergies Allergies/Adverse Reactions: Allergies Allergy/AdvReac Type Severity Reaction Status Date / Time codeine Allergy Verified 12/15/18 21:45 lorazepam [From Ativan] Allergy Verified 12/15/18 21:45 Penicillins Allergy Verified 12/15/18 21:45 albuterol AdvReac Verified 12/15/18 21:45
[2018-12-16] MEDS: XANAX PO PRN (21:08)
[2018-12-16 21:41] LABS: CKMB % 1.6 % (<4); CREATINE KINASE MB 2.1 ng/mL (0-4.0); TROPONIN I 0.04 ng/mL (0-1.5)
[2018-12-17] MEDS: NS 1000 ML 1,000 ML IV SCH ×3 (00:16→21:08)
[2018-12-17] MEDS: SYNTHROID 50 mcg TAB PO SCH (06:04)
--- NOTE | 2018-12-17 06:06 | RAD ---
HISTORY: Nontraumatic left ankle pain Study: Left ankle four views Comparison: None Findings: There is mild lateral soft tissue swelling. No fracture, lytic, or blastic lesion is identified. No joint erosion or joint effusion. There is mild tibiotalar joint space narrowing likely degenerative in origin. IMPRESSION: No acute findings Mild tibiotalar joint space narrowing likely degenerative in origin Reported By:
--- NOTE | 2018-12-17 06:20 | RAD ---
HISTORY: Congestive heart failure Study: Chest AP portable Comparison: 12/15/2018 Findings: The heart remains enlarged. No definite congestive heart failure is identified. The aorta is calcified. The genaro are normal. The lungs are well inflated and free of acute alveolar infiltrates. No pleural effusions are identified. Interstitial lung changes are stable. The bony thorax is unremarkable. IMPRESSION: Continued cardiomegaly without definite congestive heart failure Stable interstitial lung changes Reported By:
[2018-12-17 06:28] LABS: BASOPHILS # (AUTO) 0.1 X10^3/uL (0.0-0.1); BASOPHILS % (AUTO) 0.8 % (0.2-1.0); EOSINOPHILS % (AUTO) 0.5 % (0.9-2.9); HEMOGLOBIN 9.9 g/dL (12.0-16.0); LYMPHOCYTES # (AUTO) 1.4 X10^3/uL (1.3-2.9); LYMPHOCYTES % (AUTO) 18.3 % (21.0-51.0); MEAN CORPUSCULAR HEMOGLOBIN 31.1 pg (27.0-34.0); MEAN CORPUSCULAR VOLUME 91.5 fL (80.0-100.0); MEAN PLATELET VOLUME 9.8 fL (7.4-11.0); MONOCYTES # (AUTO) 0.5 x10^3/uL (0.3-0.8); NEUTROPHILS # (AUTO) 5.8 x10^3/uL (2.2-4.8); NEUTROPHILS % (AUTO) 74.4 % (42.0-75.0); PLATELET COUNT 131 X10^3/uL (150.0-450.0); RED BLOOD COUNT 3.17 X10^6/uL (3.5-5.4); WHITE BLOOD COUNT 7.7 X10^3/uL (3.6-10.0)
[2018-12-17 06:42] LABS: ALANINE AMINOTRANSFERASE 13 Units/L (12-78); ALBUMIN 2.4 g/dL (3.4-5.0); ALKALINE PHOSPHATASE 85 Units/L (46-116); ASPARTATE AMINO TRANSFERASE 25 Units/L (15-37); BLOOD UREA NITROGEN 12 mg/dL (7-18); CALCIUM 8.6 mg/dL (8.5-10.1); CARBON DIOXIDE 23.5 mmol/L (21-32); CHLORIDE 106 mmol/L (98-107); COR CA(FOR HYPOALB) 9.9 mg/dL (8.5-10.1); CREATININE 1.51 mg/dL (0.55-1.02); SODIUM 136 mmol/L (136-145); TOTAL PROTEIN 5.5 g/dL (6.4-8.2); URIC ACID 5.2 mg/dL (2.6-6.0); eGFR NON BLACK RACES 34 (>60)
[2018-12-17] MEDS: ZANTAC PO SCH (09:07)
[2018-12-17] MEDS: CELEBREX PO SCH (09:07)
[2018-12-17] MEDS: ROCEPHIN VIAL 1 GRAM IVP SCH (09:07)
[2018-12-17] MEDS: ASPIRIN EC 81 MG PO SCH (09:07)
[2018-12-17] MEDS: TOPROL XL PO SCH (09:07)
[2018-12-17] MEDS: ELIQUIS PO SCH ×2 (09:07→21:09)
[2018-12-17] MEDS: COREG TAB 3.125 MG PO SCH (09:08)
[2018-12-17] MEDS: CELEXA PO SCH (09:08)
[2018-12-17] MEDS: LASIX PO SCH (09:09)
[2018-12-17] MEDS: PREVACID PO SCH ×2 (09:09→21:09)
[2018-12-17] MEDS: XANAX PO PRN ×2 (09:12→21:08)
[2018-12-17] MEDS: ZESTRIL TAB 5 MG PO SCH (09:12)
[2018-12-17] MEDS: ATARAX TAB 25 MG PO SCH (18:53)
[2018-12-17] MEDS: LOPRESSOR TAB 50 MG PO SCH ×2 (21:00→21:10)
[2018-12-18] MEDS: ATARAX TAB 25 MG PO SCH ×3 (00:55→16:08)
[2018-12-18] MEDS: NS 1000 ML 1,000 ML IV SCH ×4 (01:55→20:53)
[2018-12-18] MEDS: LOPRESSOR TAB 50 MG PO SCH ×3 (01:56→19:30)
[2018-12-18 06:49] LABS: BASOPHILS % (AUTO) 0.6 % (0.2-1.0); EOSINOPHILS # (AUTO) 0.1 x10^3/uL (0.0-0.2); EOSINOPHILS % (AUTO) 1.8 % (0.9-2.9); HEMATOCRIT 30.8 % (36.0-47.0); HEMOGLOBIN 10.5 g/dL (12.0-16.0); LYMPHOCYTES # (AUTO) 1.6 X10^3/uL (1.3-2.9); LYMPHOCYTES % (AUTO) 20.5 % (21.0-51.0); MEAN CORPUSCULAR HEMOGLOBIN 30.9 pg (27.0-34.0); MEAN CORPUSCULAR HGB CONC 34.1 g/dL (33.0-35.0); MEAN CORPUSCULAR VOLUME 90.8 fL (80.0-100.0); MEAN PLATELET VOLUME 9.8 fL (7.4-11.0); MONOCYTES # (AUTO) 0.4 x10^3/uL (0.3-0.8); MONOCYTES % (AUTO) 5.7 % (0.0-13.0); NEUTROPHILS # (AUTO) 5.4 x10^3/uL (2.2-4.8); NEUTROPHILS % (AUTO) 71.4 % (42.0-75.0); PLATELET COUNT 158 X10^3/uL (150.0-450.0); RED BLOOD COUNT 3.39 X10^6/uL (3.5-5.4); RED CELL DISTRIBUTION WIDTH 14.1 % (11.6-16.5); WHITE BLOOD COUNT 7.6 X10^3/uL (3.6-10.0)
[2018-12-18 07:15] LABS: ALANINE AMINOTRANSFERASE 16 Units/L (12-78); ALBUMIN 2.2 g/dL (3.4-5.0); ALKALINE PHOSPHATASE 88 Units/L (46-116); ASPARTATE AMINO TRANSFERASE 26 Units/L (15-37); BLOOD UREA NITROGEN 14 mg/dL (7-18); CALCIUM 8.4 mg/dL (8.5-10.1); CARBON DIOXIDE 20.2 mmol/L (21-32); CHLORIDE 109 mmol/L (98-107); COR CA(FOR HYPOALB) 9.8 mg/dL (8.5-10.1); CREATININE 1.25 mg/dL (0.55-1.02); SODIUM 139 mmol/L (136-145); TOTAL PROTEIN 5.7 g/dL (6.4-8.2); eGFR NON BLACK RACES 43 (>60)
[2018-12-18] MEDS: ZANTAC PO SCH (09:15)
[2018-12-18] MEDS: ZESTRIL TAB 5 MG PO SCH (09:16)
[2018-12-18] MEDS: ASPIRIN EC 81 MG PO SCH (09:16)
[2018-12-18] MEDS: CELEBREX PO SCH (09:17)
[2018-12-18] MEDS: ROCEPHIN VIAL 1 GRAM IVP SCH (09:17)
[2018-12-18] MEDS: PREVACID PO SCH ×2 (09:17→23:03)
[2018-12-18] MEDS: CELEXA PO SCH (09:18)
[2018-12-18] MEDS: ELIQUIS PO SCH ×2 (09:18→23:03)
[2018-12-18] MEDS: XANAX PO PRN (09:20)
[2018-12-18] MEDS: LASIX PO SCH (09:20)
[2018-12-18] MEDS: SYNTHROID 50 mcg TAB PO SCH (09:22)
[2018-12-18] MEDS ORDERED: LOPRESSOR INJ 5 MG AMP IVP ONE (19:49)
[2018-12-18] MEDS ORDERED: LOPRESSOR INJ 5 MG AMP ONE (19:54)
[2018-12-18 20:09] LABS: ABG ALLEN TEST POS; ABG BASE EXCESS -3.4 mmol/L (-2.0-2.0); ABG HCO3 19.9 mmol/L (22-26)
[2018-12-18] MEDS ORDERED: NS 100 ML IV 100 ML ONE (20:34)
[2018-12-18] MEDS ORDERED: CARDIZEM INJ 125 MG VIAL ONE (20:34)
[2018-12-18] MEDS ORDERED: CARDIZEM INJ 50 MG VIAL ONE (20:44)
[2018-12-18] MEDS ORDERED: CARDIZEM INJ 50 MG VIAL IVP ONE ×2 (20:46→21:50)
[2018-12-18] MEDS: CARDIZEM INJ 125 MG VIAL 125 MG in NS 100 ML IV 100 ML IV PRN (20:55)
--- NOTE | 2018-12-18 22:38 | CT ---
CT brain without contrast Indication:Altered mental status, unresponsive Comparison: 12/15/2018 Technique: Multiple axial images of the brain were obtained from the skull base to the vertex without administration of IV contrast. Dose reduction techniques including automated exposure control (AEC) and adjustment of mA and kV were utilized. Findings: Generalized cerebral atrophy with moderate bilateral periventricular and deep white matter hypoattenuation is unchanged from prior examination. Stable remote tiny infarct within the right cerebellar hemisphere. No acute intraparenchymal hemorrhage or mass can be identified. No extra-axial fluid collections are seen. No alteration in the attenuation of the brain parenchyma can be identified to suggest acute or subacute ischemic change. The ventricular system is symmetric and nondilated. The extracranial structures are grossly unremarkable. IMPRESSION: 1. No acute intracranial hemorrhage. 2. Stable generalized cerebral atrophy with bilateral periventricular and deep white matter hypoattenuation is nonspecific however likely resent sequela of chronic microvascular ischemic disease. Reported By:
--- NOTE | 2018-12-18 23:13 | RAD ---
AP chest. Indication: Unresponsive. Comparison: 12/17/2018 Findings: Heart size remains mildly enlarged. There is blunting of the left costophrenic sulcus and hemidiaphragm representing either infiltrate or subsegmental atelectasis. Diffuse increased interstitial opacities are noted throughout the lungs. Biapical pleural parenchymal scarring is noted. No pneumothorax. No acute osseous abnormality. Impression: Silhouetting of the left hemidiaphragm and costophrenic sulcus represents either developing infiltrate or subsegmental atelectasis for which clinical correlation is needed. Remaining examination is unchanged demonstrating persistent cardiomegaly and bilateral chronic interstitial lung changes. Reported By:
[2018-12-19] MEDS: NS 1000 ML 1,000 ML IV SCH ×5 (02:59→23:00)
[2018-12-19] MEDS: ATARAX TAB 25 MG PO SCH (03:00)
[2018-12-19] MEDS: CARDIZEM INJ 125 MG VIAL 125 MG in NS 100 ML IV 100 ML IV PRN (05:44)
[2018-12-19 05:59] LABS: BASOPHILS % (AUTO) 0.3 % (0.2-1.0); EOSINOPHILS # (AUTO) 0.1 x10^3/uL (0.0-0.2); EOSINOPHILS % (AUTO) 0.7 % (0.9-2.9); HEMATOCRIT 34.5 % (36.0-47.0); HEMOGLOBIN 11.4 g/dL (12.0-16.0); LYMPHOCYTES # (AUTO) 2.4 X10^3/uL (1.3-2.9); LYMPHOCYTES % (AUTO) 20.1 % (21.0-51.0); MEAN CORPUSCULAR HEMOGLOBIN 30.4 pg (27.0-34.0); MEAN CORPUSCULAR HGB CONC 33.2 g/dL (33.0-35.0); MEAN CORPUSCULAR VOLUME 91.5 fL (80.0-100.0); MEAN PLATELET VOLUME 10.1 fL (7.4-11.0); MONOCYTES # (AUTO) 0.8 x10^3/uL (0.3-0.8); NEUTROPHILS # (AUTO) 8.7 x10^3/uL (2.2-4.8); NEUTROPHILS % (AUTO) 71.9 % (42.0-75.0); PLATELET COUNT 171 X10^3/uL (150.0-450.0); RED BLOOD COUNT 3.76 X10^6/uL (3.5-5.4); RED CELL DISTRIBUTION WIDTH 14.4 % (11.6-16.5)
[2018-12-19 06:13] LABS: ALANINE AMINOTRANSFERASE 12 Units/L (12-78); ALBUMIN 2.1 g/dL (3.4-5.0); ALKALINE PHOSPHATASE 97 Units/L (46-116); ASPARTATE AMINO TRANSFERASE 23 Units/L (15-37); BLOOD UREA NITROGEN 14 mg/dL (7-18); CALCIUM 8.8 mg/dL (8.5-10.1); CHLORIDE 108 mmol/L (98-107); COR CA(FOR HYPOALB) 10.3 mg/dL (8.5-10.1); CREATININE 1.21 mg/dL (0.55-1.02); SODIUM 140 mmol/L (136-145); TOTAL PROTEIN 5.8 g/dL (6.4-8.2); eGFR NON BLACK RACES 45 (>60)
[2018-12-19] MEDS: SYNTHROID 50 mcg TAB PO SCH (06:31)
[2018-12-19] MEDS ORDERED: LASIX IVP ONE ×2 (09:00→12:00)
[2018-12-19] MEDS ORDERED: NEXTERONE IV 150 MG PREMIX* 150 MG/100 ML BAG ONE (09:09)
[2018-12-19] MEDS ORDERED: NEXTERONE IV 360 MG PREMIX* 360 MG/200 ML BAG ONE ×2 (09:10→15:28)
[2018-12-19] MEDS ORDERED: NEXTERONE IV 150 MG PREMIX* 150 MG/100 ML BAG IV ONE (09:15)
[2018-12-19] MEDS: NEXTERONE IV 360 MG PREMIX* 360 MG/200 ML BAG IV PRN ×2 (09:33→15:35)
--- NOTE | 2018-12-19 10:04 | RAD ---
HISTORY: Possible aspiration Study: Single view of the chest. Comparison: 12/18/2018 Findings: Cardiomegaly bilateral perihilar interstitial prominence. Small bilateral pleural effusions. Obscuration of left hemidiaphragm.. Osseous structures demonstrate no acute abnormality. IMPRESSION: 1. Unchanged appearance of cardiomegaly with possible pulmonary edema and bilateral small pleural effusions superimposed upon COPD. Reported By:
[2018-12-19] MEDS ORDERED: ISOPTO ATROPINE AFFEYE ONE (10:13)
[2018-12-19] MEDS: ROCEPHIN VIAL 1 GRAM IVP SCH (12:08)
--- NOTE | 2018-12-19 13:21 | CT ---
HISTORY: Altered mental status Study: CT head without contrast Comparison: 11/21/2018 Technique: Axial noncontrast images with coronal and sagittal reformats. Dose reduction procedures were used with mA/kv adjusted for body size Findings: The ventricles, cortical sulci, and other CSF spaces are enlarged consistent with generalized atrophy likely age related. There is decreased attenuation in the periventricular white matter suggestive of small vessel vascular disease. There is no definite evidence for visible recent or remote CVA, hemorrhage, mass lesion, or extra-axial fluid collection. The visualized sinuses are clear. The calvarium is intact. IMPRESSION: No acute intracranial abnormality Generalized atrophy likely age related Diffuse small vessel vascular disease Reported By:
[2018-12-19] MEDS: ASPIRIN EC 81 MG PO SCH (14:34)
[2018-12-19] MEDS: CELEBREX PO SCH (14:35)
[2018-12-19] MEDS: PREVACID PO SCH ×2 (14:36→21:00)
[2018-12-19] MEDS: LASIX PO SCH (14:36)
[2018-12-19] MEDS: ZANTAC PO SCH (14:36)
[2018-12-19] MEDS: LOPRESSOR TAB 50 MG PO SCH ×2 (14:36→21:00)
[2018-12-19] MEDS: ZESTRIL TAB 5 MG PO SCH (14:36)
[2018-12-19] MEDS: ELIQUIS PO SCH (14:38)
[2018-12-19] MEDS: CELEXA PO SCH (14:48)
[2018-12-19] MEDS: LOVENOX INJ 40 MG SYR SC SCH (21:00)
[2018-12-19] MEDS: XOPENEX 1.25 MG/3 ML NEBULE NEB SCH (21:50)
[2018-12-20] MEDS: XOPENEX 1.25 MG/3 ML NEBULE NEB SCH ×3 (03:17→13:31)
[2018-12-20] MEDS ORDERED: NEXTERONE IV 360 MG PREMIX* 360 MG/200 ML BAG IV PRN (03:18)
[2018-12-20] MEDS ORDERED: DRUG FILTER EXTENSION SET ONE (03:23)
[2018-12-20] MEDS ORDERED: NEXTERONE IV 360 MG PREMIX* 360 MG/200 ML BAG ONE (03:24)
[2018-12-20 06:40] LABS: BASOPHILS # (AUTO) 0.1 X10^3/uL (0.0-0.1); BASOPHILS % (AUTO) 1.1 % (0.2-1.0); EOSINOPHILS % (AUTO) 0.5 % (0.9-2.9); HEMATOCRIT 28.9 % (36.0-47.0); HEMOGLOBIN 9.9 g/dL (12.0-16.0); LYMPHOCYTES # (AUTO) 1.5 X10^3/uL (1.3-2.9); LYMPHOCYTES % (AUTO) 19.2 % (21.0-51.0); MEAN CORPUSCULAR HEMOGLOBIN 31.2 pg (27.0-34.0); MEAN CORPUSCULAR HGB CONC 34.3 g/dL (33.0-35.0); MEAN CORPUSCULAR VOLUME 91.1 fL (80.0-100.0); MEAN PLATELET VOLUME 9.2 fL (7.4-11.0); MONOCYTES # (AUTO) 0.6 x10^3/uL (0.3-0.8); NEUTROPHILS # (AUTO) 5.7 x10^3/uL (2.2-4.8); NEUTROPHILS % (AUTO) 71.2 % (42.0-75.0); PLATELET COUNT 178 X10^3/uL (150.0-450.0); RED BLOOD COUNT 3.17 X10^6/uL (3.5-5.4); RED CELL DISTRIBUTION WIDTH 14.2 % (11.6-16.5)
[2018-12-20 06:56] LABS: ALANINE AMINOTRANSFERASE 11 Units/L (12-78); ALBUMIN 1.8 g/dL (3.4-5.0); ALKALINE PHOSPHATASE 84 Units/L (46-116); ASPARTATE AMINO TRANSFERASE 21 Units/L (15-37); BLOOD UREA NITROGEN 18 mg/dL (7-18); CALCIUM 8.4 mg/dL (8.5-10.1); CARBON DIOXIDE 18.7 mmol/L (21-32); CHLORIDE 110 mmol/L (98-107); COR CA(FOR HYPOALB) 10.2 mg/dL (8.5-10.1); CREATININE 1.54 mg/dL (0.55-1.02); SODIUM 142 mmol/L (136-145); TOTAL PROTEIN 5.2 g/dL (6.4-8.2); eGFR NON BLACK RACES 34 (>60)
[2018-12-20] MEDS ORDERED: LANOXIN INJ ONE (07:59)
[2018-12-20] MEDS ORDERED: LOPRESSOR INJ 5 MG AMP ONE (07:59)
[2018-12-20] MEDS ORDERED: LANOXIN INJ IVP SCH (08:00)
[2018-12-20] MEDS ORDERED: LOPRESSOR INJ 5 MG AMP IVP PRN (08:00)
[2018-12-20] MEDS: LOVENOX INJ 40 MG SYR SC SCH ×2 (09:35→21:15)
[2018-12-20] MEDS ORDERED: XANAX PO PRN (09:52)
[2018-12-20] MEDS: CELEBREX PO SCH (10:00)
[2018-12-20] MEDS: SYNTHROID 50 mcg TAB PO SCH ×2 (10:00→18:42)
[2018-12-20] MEDS ORDERED: CORDARONE TAB 200 MG ONE (10:07)
[2018-12-20] MEDS: ROCEPHIN VIAL 1 GRAM IVP SCH (10:21)
[2018-12-20] MEDS: PREVACID PO SCH (10:22)
[2018-12-20] MEDS: ZESTRIL TAB 5 MG PO SCH (10:22)
[2018-12-20] MEDS: ASPIRIN EC 81 MG PO SCH (10:24)
[2018-12-20] MEDS: ZANTAC PO SCH (10:24)
[2018-12-20] MEDS: LASIX PO SCH (10:28)
[2018-12-20] MEDS: CELEXA PO SCH (10:29)
[2018-12-20] MEDS ORDERED: MORPHINE SULFATE INJ 2 MG INJ IVP PRN (12:46)
[2018-12-20] MEDS ORDERED: LASIX IVP SCH (13:00)
[2018-12-20] MEDS: NS 1000 ML 1,000 ML IV SCH (14:10)
[2018-12-20] MEDS ORDERED: CORDARONE TAB 200 MG PO SCH (17:00)
[2018-12-20] MEDS ORDERED: POTASSIUM CHL 40 MEQ/NS 0.45% 500 ML IV PRN (17:13)
[2018-12-20] MEDS ORDERED: POTASSIUM CHL 60 MEQ/NS 0.45% 500 ML IV PRN (17:13)
[2018-12-20] MEDS ORDERED: K-DUR TAB 20 MEQ PO PRN (17:13)
[2018-12-20] MEDS ORDERED: POTASSIUM CHLORIDE LIQ 20 MEQ UDC PO PRN (17:13)
[2018-12-20] MEDS ORDERED: MICRO K EXTEN CAP 10 MEQ PO PRN (17:13)
[2018-12-20] MEDS ORDERED: KLOR-CON PO PRN (17:13)
[2018-12-20] MEDS ORDERED: K-RIDER 10 MEQ/NS 100 ML 40 MEQ/400 ML BAG IV ONE (17:17)
[2018-12-20] MEDS ORDERED: CARDIZEM INJ 50 MG VIAL IVP ONE (18:39)
[2018-12-20] MEDS: LOPRESSOR TAB 50 MG PO SCH (18:41)
[2018-12-20] MEDS ORDERED: CARDIZEM INJ 125 MG VIAL 125 MG in NS 100 ML IV 100 ML IV PRN (18:46)
[2018-12-20] MEDS ORDERED: CARDIZEM INJ 125 MG VIAL ONE (18:53)
[2018-12-20] MEDS ORDERED: CARDIZEM INJ 50 MG VIAL ONE (18:53)
[2018-12-20] MEDS: K-RIDER 10 MEQ/NS 100 ML 10 MEQ/100 ML BAG IV PRN ×2 (18:59→20:08)
[2018-12-20 20:32] VITALS: BP 141/83
== END 2018-12-20 21:45 | disposition home health service (06) | DRG 308 ==
LOC: ER 21:03 → ICU 23:46
PROVIDERS: ADMIT Internal Medicine; ATTEND Internal Medicine
DX: I47.2 Ventricular tachycardia; J18.8 Other pneumonia, unspecified organism; I25.10 Atherosclerotic heart disease of native coronary artery without angina pectoris; F01.51 Vascular dementia, unspecified severity, with behavioral disturbance; R13.12 Dysphagia, oropharyngeal phase; I48.91 Unspecified atrial fibrillation; R94.31 Abnormal electrocardiogram [ECG] [EKG]; I11.0 Hypertensive heart disease with heart failure; R26.89 Other abnormalities of gait and mobility; F41.8 Other specified anxiety disorders; R40.4 Transient alteration of awareness; E86.0 Dehydration; M13.89 Other specified arthritis, multiple sites; R06.02 Shortness of breath
CPT/HCPCS: 36415; 36600; 51702; 70450; 71010; 71045; 73610; 80053; 81001; 82550; 82553; 82803; 84484; 84550; 85025; 86140; 87040; 87086; 92610; 93005; 94640; 96365; 96367; 96374; 96375; 97162; 97166; 97530; 99285; A4222; J0153; J0282; J0696; J1160; J1650; J1940; J3480; J3490; J7030; J7050